=== PATIENT | female | born 1970 | race Caucasian/White ===

== ENCOUNTER 2017-08-29 19:22 | Emergency (ER) | payer OTHER, SELFPAY ==
[2017-08-29 19:24] VITALS: BP 158/98; PULSE 105; RESP 14; TEMP 36.7; O2SAT 97; BMI 31.6
--- NOTE | 2017-08-29 19:36 | XR_ITS ---
XR chest 2V HISTORY: ITS.REASON: cough ORDERING PHYSICIAN: Carmen Langston MD PATIENT AGE: 46 years COMPARISON: None available FINDINGS: The cardiomediastinal silhouette and pulmonary vascularity are within normal limits. The lungs are clear without infiltrates, suspicious nodules, or pleural effusions. No acute bony abnormalities. IMPRESSION: Negative chest, no acute finding
--- NOTE | 2017-08-29 19:40 | HMH.EDURI ---
ED Disposition Condition on Discharge: Good Time of Disposition: 19:59 - Critical Care Critical Care Time: No <LangstonHuyCarmen M - Last Filed: 08/29/17 19:57> <Cooper Sorto - Last Filed: 08/29/17 20:40> Clinical Impression: Upper respiratory infection Qualifiers: URI type: unspecified viral URI Qualified Code(s): J06.9 - Acute upper respiratory infection, unspecified Disposition: Home, Self-Care Attestation: On 08/29/17, the high probability of a clinically significant, sudden or life threatening deterioration of the following system(s) required my full and direct attention, intervention and personal management. The time I documented below is in addition to time spent performing reported procedures but includes the following listed in this critical care notation. Medical Decision Making - Tray Inquiry Pt receiving controlled substance: No <Carmen Langston - Last Filed: 08/29/17 19:57> - Radiology Data #1 Image(s): Chest Image Reviewed: Yes I reviewed the patient's radiology image Preliminary Findings: Normal/NAD <Cooper Sorto - Last Filed: 08/29/17 20:40> Vital Signs: 08/29/17 19:24 Temperature 98.1 F Temperature Source Oral Pulse Rate [Left Radial] 105 H Respiratory Rate 14 Blood Pressure [Right Arm] 158/98 Blood Pressure Mean [Right Arm] 118 Blood Pressure Source [Right Arm] Automatic Cuff Blood Pressure Position [Right Arm] Sitting 02 Sat by Pulse Oximetry 97 Oxygen Delivery Method Room Air - Lab Data Lab Results 08/29/17 19:30: Influenza Type A Ag Negative, Influenza Type B Ag Negative, Group A Strep Rapid Negative Orders (Tests/Meds): ORDERS Category Date Time Status XR chest 2V Stat Exams 08/29/17 19:36 Taken Strep Screen Confirmation Stat Micro 08/29/17 19:30 Received URI/Sore Throat HPI - General Mode of Arrival: Ambulatory Limitations: No Limitations Description of Symptoms (Recalled from ER Triage Doc. by RN): since last tuesday chest congestion, sinus congestion, sore throat, [facility] gave amox and mucinex for since last Tue - History of Present Illness MD Complaint: fever, cough, sore throat, rhinorrhea, nasal congestion Onset (ago): day(s) Duration: constant Severity: mild Relieving factors: nothing Able to tolerate fluids by mouth: Yes Associated symptoms: fever, myalgias, diaphoresis, rhinorrhea, nasal congestion Treatments prior to arrival: none <Carmen Langston - Last Filed: 08/29/17 19:57> <Cooper Sorto - Last Filed: 08/29/17 20:40> - General Chief Complaint: Upper Respiratory Infection Stated Complaint: wheezing, chest congestion - Related Data Allergies Allergy/AdvReac Type Severity Reaction Status Date / Time ADHESIVES Allergy Unknown Uncoded 06/07/17 14:26 [facility] History I have reviewed the patient's past medical history: Yes Medical History: Reports:: Cancer (cervical), Diabetes Mellitus Type 2 Denies:: Diabetes Mellitus Type 1, MRSA Amputation: No Fractures: No - Social History Smoking Status: Former smoker Alcohol Intake: never - Psychiatric History Expresses thoughts of harming self/others: None Suicide Plan Description: No Plan <Carmen Langston - Last Filed: 08/29/17 19:57> ROS Obtained: Yes All systems reviewed & no additional complaints <Carmen Langston - Last Filed: 08/29/17 19:57> Physical Exam - General General appearance: alert, in no apparent distress - Head Head exam: atraumatic, normocephalic, normal inspection - Eye Eye exam: Present: normal appearance, PERRL, EOMI - ENT ENT exam: Present: normal oropharynx, mucous membranes moist, normal external ear exam, other (cloudy TM's B; throat no erythema or exudates; no VU) - Chest Chest inspection: Present: normal inspection, symmetric chest wall rise. Absent: tenderness - Respiratory Respiratory exam: Present: normal lung sounds bilaterally, wheezes, other (occ bronchitic cough; ). Absent: respiratory distress - C
--- NOTE | 2017-08-29 19:46 | ED_ITS ---
ED Disposition Condition on Discharge: Good Time of Disposition: 19:59 - Critical Care Critical Care Time: No <LangstonHuyCarmen M - Last Filed: 08/29/17 19:57> <Cooper Sorto - Last Filed: 08/29/17 20:40> Clinical Impression: Upper respiratory infection Qualifiers: URI type: unspecified viral URI Qualified Code(s): J06.9 - Acute upper respiratory infection, unspecified Disposition: Home, Self-Care Attestation: On 08/29/17, the high probability of a clinically significant, sudden or life threatening deterioration of the following system(s) required my full and direct attention, intervention and personal management. The time I documented below is in addition to time spent performing reported procedures but includes the following listed in this critical care notation. Medical Decision Making - Tray Inquiry Pt receiving controlled substance: No <Carmen Langston - Last Filed: 08/29/17 19:57> - Radiology Data #1 Image(s): Chest Image Reviewed: Yes I reviewed the patient's radiology image Preliminary Findings: Normal/NAD <Cooper Sorto - Last Filed: 08/29/17 20:40> Vital Signs: 08/29/17 19:24 Temperature 98.1 F Temperature Source Oral Pulse Rate [Left Radial] 105 H Respiratory Rate 14 Blood Pressure [Right Arm] 158/98 Blood Pressure Mean [Right Arm] 118 Blood Pressure Source [Right Arm] Automatic Cuff Blood Pressure Position [Right Arm] Sitting 02 Sat by Pulse Oximetry 97 Oxygen Delivery Method Room Air - Lab Data Lab Results 08/29/17 19:30: Influenza Type A Ag Negative, Influenza Type B Ag Negative, Group A Strep Rapid Negative Orders (Tests/Meds): ORDERS Category Date Time Status XR chest 2V Stat Exams 08/29/17 19:36 Taken Strep Screen Confirmation Stat Micro 08/29/17 19:30 Received URI/Sore Throat HPI - General Mode of Arrival: Ambulatory Limitations: No Limitations Description of Symptoms (Recalled from ER Triage Doc. by RN): since last tuesday chest congestion, sinus congestion, sore throat, [facility] gave amox and mucinex for since last Tue - History of Present Illness MD Complaint: fever, cough, sore throat, rhinorrhea, nasal congestion Onset (ago): day(s) Duration: constant Severity: mild Relieving factors: nothing Able to tolerate fluids by mouth: Yes Associated symptoms: fever, myalgias, diaphoresis, rhinorrhea, nasal congestion Treatments prior to arrival: none <Carmen Langston - Last Filed: 08/29/17 19:57> <Cooper Sorto - Last Filed: 08/29/17 20:40> - General Chief Complaint: Upper Respiratory Infection Stated Complaint: wheezing, chest congestion - Related Data Allergies Allergy/AdvReac Type Severity Reaction Status Date / Time ADHESIVES Allergy Unknown Uncoded 06/07/17 14:26 [facility] History I have reviewed the patient's past medical history: Yes Medical History: Reports:: Cancer (cervical), Diabetes Mellitus Type 2 Denies:: Diabetes Mellitus Type 1, MRSA Amputation: No Fractures: No - Social History Smoking Status: Former smoker Alcohol Intake: never - Psychiatric History Expresses thoughts of harming self/others: None Suicide Plan Description: No Plan <Carmen Langston - Last Filed: 08/29/17 19:57> ROS Obtained: Yes All systems reviewed & no additional complaints
[2017-08-29 20:07] LABS: Strep Scrn Group A (Rapid) Negative (Negative)
[2017-08-29 20:46] VITALS: BP 158/98; PULSE 98; RESP 14; TEMP 37; O2SAT 98
== END 2017-08-29 20:48 | disposition home or self-care (01) ==
PROVIDERS: Emergency Provider Emergency Medicine; Family Provider Family Medicine; PCP Family Medicine
DX: J06.9 Acute upper respiratory infection, unspecified (principal)
CPT/HCPCS: 71046; 87275; 87276; 87430; 99283

== ENCOUNTER → 2019-09-10 15:54 | Outpatient (CLI) | payer OTHER, SELFPAY ==
[2019-09-10 17:02] LABS: Blood Urea Nitrogen 9 mg/dl (7-17); Estimated Glomerular Filt Rate 131 ml/min (>60); GFR (African American) 159 ML/MIN (>60)
== END ==
PROVIDERS: PCP Family Medicine; Visit Provider Otolaryngology
DX: D37.030 Neoplasm of uncertain behavior of the parotid salivary glands (principal); R22.0 Localized swelling, mass and lump, head
CPT/HCPCS: 36415; 82565; 84520

== ENCOUNTER → 2019-09-11 10:28 | Outpatient (CLI) | payer OTHER, SELFPAY ==
--- NOTE | 2019-09-11 10:34 | CT_ITS ---
PROCEDURE: CT SOFT TISSUE NECK W CON CLINICAL HISTORY: LT parotid MASS COMPARISON: No exams were available for comparison TECHNIQUE: 75 mL Optiray 350 IV Axial images obtained with sagittal and coronal reformats. All CT scans at the facility use one or more dose reduction, viz: automated exposure control, ma/kV adjustment per patient size (including targeted exams where dose is matched to indication, i.e. head), or iterative reconstruction technique. FINDINGS: A BB is placed in the left posterior facial area in the preauricular region. There is a small lymph node just deep and inferior to this region which could account for the palpable abnormality. This measures approximately 10 mm. No parotid mass is evident. No abnormal fluid collections apparent. There are few scattered small lymph nodes in the neck bilaterally. Small node along superior lateral aspect of the right parotid is present measuring 7 mm with 2 additional nodules in the right periparotid region 1 posteriorly at 7 mm and 1 inferiorly at 11 mm. Scattered small nodes are present on the left as well the largest measuring approximately 2 by 1 cm in the jugular area. Lung apices are clear. There are degenerative changes in the cervical spine. No thyroid mass evident. No obvious parapharyngeal mass. There is moderate mucosal thickening involving the maxillary sinuses on both sides consistent with underlying retention cyst. There has been prior maxillary sinus surgery. TMJs have an unremarkable appearance. IMPRESSION: 1. Mildly prominent cervical lymph nodes. These are nonspecific the largest in the internal jugular region at approximately 2 x 1 cm. A BB is placed in the left facial area. A small lymph node measuring approximately 1 cm present just deep in inferior to this region and may account for the palpable abnormality 2. Maxillary sinus disease Dictated by: Feliz Velasquez MD 09/12/2019 11:40 Electronically signed by Feliz Velasquez MD in [place] 09/12/2019 11:40
== END ==
PROVIDERS: PCP Family Medicine; Visit Provider Otolaryngology
DX: D37.030 Neoplasm of uncertain behavior of the parotid salivary glands (principal); R22.0 Localized swelling, mass and lump, head
CPT/HCPCS: 70491; Q9967

== ENCOUNTER → 2019-09-24 09:12 | Outpatient (CLI) | payer OTHER, SELFPAY ==
--- NOTE | 2019-09-24 09:14 | US_ITS ---
PROCEDURE: US SOFT TISSUE HEAD AND NECK CLINICAL INDICATION: ENLARGED LYMPH NODE, left facial swelling COMPARISON: CT SOFT TISSUE NECK W CON from 09/11/2019 FINDINGS: There are few scattered small nodes in the neck on both sides. The submandibular glands have an unremarkable appearance. No dominant adenopathy is evident. The small node seen on the CT scan at 2 x 1 cm is not readily identified on the ultrasound due to its deep location The left parotid gland is enlarged but no parotid mass is evident. There is a small node along the anterior aspect of the left parotid gland at approximately 1.4 cm by 0.7 cm. The right parotid gland is small measuring 2.4 x 0.9 cm. Whereas, the left parotid gland measures approximately 4 x 1.7 cm. No abnormal fluid collections are evident. IMPRESSION: 1. No dominant adenopathy. The small nodes noted on the CT scan are not good candidates for fine needle aspiration. 2. There is asymmetric enlargement of the left parotid gland. The right parotid gland is atrophic on the CT scan. No parotid mass is evident. 3. Suggest [address] follow-up of the parotids. If the node and question continues to enlarge then biopsy could be reconsidered at that time Dictated by: Feliz Velasquez MD 09/24/2019 10:26 Electronically signed by Feliz Velasquez MD in [place] 09/24/2019 10:26
== END ==
PROVIDERS: PCP Family Medicine; Visit Provider Otolaryngology
DX: R22.0 Localized swelling, mass and lump, head (principal); R59.1 Generalized enlarged lymph nodes
CPT/HCPCS: 76536

== ENCOUNTER 2020-02-06 16:37 | Emergency (ER) | payer OTHER, SELFPAY ==
[2020-02-06 17:25] VITALS: BP 134/81; PULSE 93; RESP 20; TEMP 36.8; O2SAT 97; BMI 29.7
--- NOTE | 2020-02-06 17:27 | XR_ITS ---
PROCEDURE: XR FOOT LT MIN 3V CLINICAL INDICATION: stepped on something Possible foreign body COMPARISON: No exams were available for comparison FINDINGS: No fracture or dislocation. No lytic or blastic change. There is normal mineralization. The joint spaces are well-preserved. No significant degenerative/arthritic changes. No erosive changes evident. Other findings:There is a small metallic linear foreign body along the plantar surface of the foot lateral to the cuboid. This measures approximately 4 mm in length IMPRESSION: Positive for foreign body Dictated by: Feliz Velasquez MD 02/06/2020 21:52 Feliz Velasquez MD in [place] 02/06/2020 21:52
--- NOTE | 2020-02-06 18:53 | XR_ITS ---
PROCEDURE: XR FOOT LT MIN 3V CLINICAL INDICATION: injury Foreign body removal evaluation COMPARISON: CR XR FOOT LT MIN 3V from 02/06/2020 FINDINGS: No fracture or dislocation. No lytic or blastic change. There is normal mineralization. The joint spaces are well-preserved. No significant degenerative/arthritic changes. No erosive changes evident. Other findings:The previously noted metallic foreign body along the plantar surface of the foot is no longer apparent. IMPRESSION: Status post foreign body removal Dictated by: Feliz Velasquez MD 02/06/2020 21:51 Feliz Velasquez MD in [place] 02/06/2020 21:51
--- NOTE | 2020-02-06 19:21 | HMH.EDUTC ---
[facility] [place] [facility] [place] Clinical Impression: Foreign body in right foot Qualifiers: Encounter type: initial encounter Qualified Code(s): S90.851A - Superficial foreign body, right foot, initial encounter Puncture wound of right foot Qualifiers: Encounter type: initial encounter Qualified Code(s): S91.331A - Puncture wound without foreign body, right foot, initial encounter Diabetes Qualifiers: Diabetes mellitus type: type 2 Diabetes mellitus shelter insulin use: unspecified shelter insulin use status Diabetes mellitus complication status: with other specified complication Qualified Code(s): E11.69 - Type 2 diabetes mellitus with other specified complication Disposition: Home, Self-Care Condition on Discharge: Good Instructions: DI for Removal of Foreign Body From Skin, DI for Puncture Wound Additional Instructions: Take the antibiotics as directed. Follow up with your regular doctor for a recheck of the wound in 24 to 48 hours. Follow up with podiatry (Dr. Lira). I put in a referral, but you'll need to call her office in the morning and schedule an appointment with her. Since you are diabetic, it is very important to follow up appropriately when you've had any injury to your feet, much less a puncture wound with a foreign body. Rest and keep the foot elevated as much time as possible for the next few days. Watch the site for any signs of worsening infection, such as worsening redness, swelling, drainage, etc. GO TO THE ER FOR ANY WORSENING SYMPTOMS OR CONCERNS Prescriptions: Ciprofloxacin HCl [Cipro 500mg Tab] 500 mg PO BID 10 Days #20 tab Transmission Status: Received by [id number] clindamycin HCL [Clindamycin HCl 300mg Cap] 300 mg PO Q8 10 Days #30 cap Transmission Status: Received by [id number] Referrals: Vickie Angulo [Primary Care Provider] - Keesha Lira DPM [Staff Physician] - Forms: Work/School Release Time of Disposition: 19:30 Medical Decision Making - Medical Records Medical records reviewed: No: I reviewed the patient's medical records. - Tray Inquiry Pt receiving controlled substance: No Vital Signs: 02/06/20 17:25 02/06/20 19:41 Temperature 98.3 F 98.3 F Temperature Source Oral Pulse Rate 93 H Pulse Rate [Left Brachial] 93 H Respiratory Rate 20 20 Blood Pressure 134/81 Blood Pressure [Left Arm] 134/81 Blood Pressure Mean [Left Arm] 98 Blood Pressure Source [Left Arm] Automatic Cuff Blood Pressure Position [Left Arm] Sitting 02 Sat by Pulse Oximetry 97 Oxygen Delivery Method Room Air Orders (Tests/Meds): ED MEDICATIONS Discontinued Medications Generic Name Dose Route Start Last Admin Trade Name [place] PRN Reason Stop Dose Admin Ceftriaxone Sodium 1 gm 02/06/20 19:20 02/06/20 19:33 Rocephin 1gm Vial IM 02/06/20 19:21 1 gm ONCE ONE Administration Protocol Lidocaine HCl 0 ml 02/06/20 19:20 02/06/20 19:33 Lidocaine 1% 10ml Mdv IM 02/06/20 19:21 2.1 ml ONCE ONE Administration - Radiology Data #1 Image(s): Foot/Toes Image Reviewed: Yes I reviewed the patient's radiology image, Yes I have reviewed radiologist's interpretation Preliminary Findings: Abnormal PROCEDURE: XR FOOT LT MIN 3V CLINICAL INDICATION: stepped on something Possible foreign body COMPARISON: No exams were available for comparison FINDINGS: No fracture or dislocation. No lytic or blastic change. There is normal mineralization. The joint spaces are well-preserved. No significant degenerative/arthritic changes. No erosive changes evident. Other findings:There is a small metallic linear foreign body along the plantar surface of the foot lateral to the cuboid. This measures approximately 4 mm in length IMPRESSION: Positive for foreign body Dictated by: Feliz Velasquez MD 02/06/2020 21:52 Feliz Velasquez MD in [place] 02/06/2020 21:52 #2 Image Reviewed: Yes I reviewed the patient's radiology image, Yes
[2020-02-06 19:41] VITALS: BP 134/81; PULSE 93; RESP 20; TEMP 36.8; O2SAT 97
== END 2020-02-06 19:42 | disposition home or self-care (01) ==
PROVIDERS: Emergency Provider Nurse Practitioner Family; PCP Family Medicine
DX: S90.851A Superficial foreign body, right foot, initial encounter (principal); S91.331A Puncture wound without foreign body, right foot, initial encounter; E11.69 Type 2 diabetes mellitus with other specified complication; W22.8XXA Striking against or struck by other objects, initial encounter; Y92.69 Other specified industrial and construction area as the place of occurrence of the external cause; Y99.0 Civilian activity done for income or pay; Z79.84 Long term (current) use of oral hypoglycemic drugs; Z87.891 Personal history of nicotine dependence; Z91.048 Other nonmedicinal substance allergy status
CPT/HCPCS: 73630; 96372; 99202

== ENCOUNTER 2020-06-02 12:34 | Emergency (ER) | payer OTHER, SELFPAY ==
[2020-06-02 12:40] VITALS: BP 144/82; PULSE 96; RESP 14; TEMP 36.8; O2SAT 96; BMI 30.4
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
[2020-06-02 13:56] VITALS: BP 144/82; PULSE 96; RESP 14; TEMP 36.8; O2SAT 96
== END 2020-06-02 14:00 | disposition home or self-care (01) ==
PROVIDERS: Emergency Provider Nurse Practitioner Family; PCP Family Medicine
DX: S97.81XA Crushing injury of right foot, initial encounter (principal); W22.8XXA Striking against or struck by other objects, initial encounter; Y92.019 Unspecified place in single-family (private) house as the place of occurrence of the external cause; I10 Essential (primary) hypertension; E11.9 Type 2 diabetes mellitus without complications; Z91.048 Other nonmedicinal substance allergy status; Z87.891 Personal history of nicotine dependence
CPT/HCPCS: 73630; 99201

== ENCOUNTER → 2020-07-14 13:20 | Outpatient (CLI) | payer OTHER, SELFPAY ==
[2020-07-14 15:06] LABS: Chloride 104 mmol/L (98-107); Potassium 4.5 mmoL/L (3.5-5.1); Sodium 139 mmol/L (136-145)
[2020-07-14 15:09] LABS: Alanine Aminotransferase 59 U/L (12-78); Albumin Level 4.4 g/dl (3.5-5.0); Albumin/Globulin Ratio 1.2 (1.1-1.8); Alkaline Phosphatase 87 U/L (38-126); Anion Gap 14.5 mEq/L (5-15); Aspartate Amino Transferase 49 U/L (14-36); Bilirubin,Total 0.4 mg/dl (0.2-1.3); Blood Urea Nitrogen 11 mg/dl (7-17); Carbon Dioxide 25 mmol/L (22.0-30.0); Estimated Glomerular Filt Rate 131 ml/min (>60); GFR (African American) 158 ML/MIN (>60); Globulin 3.6 g/dL (1.3-3.2)
[2020-07-14 15:10] LABS: Calcium 9.8 mg/dl (8.4-10.2); Glucose 150 mg/dl (74-100)
[2020-07-16 12:11] LABS: Immunoglobulin A, Qn 274 mg/dL (87-352); Immunoglobulin G, Qn 1342 mg/dL (586-1602)
[2020-07-16 15:42] LABS: Cytomegalovirus (CMV) Ab, IgM <30.0 AU/mL (0.0-29.9); Hep A Ab, Total Positive (Negative); Immunoglobulin M, Qn 174 mg/dL (26-217)
[2020-07-16 23:05] LABS: EBV Ab VCA, IgG 98.2 U/mL (0.0-17.9)
[2020-07-17 18:49] LABS: Antinuclear Antibodies, IFA Positive (.)
[2020-07-19 12:19] LABS: CMV Quant DNA PCR (Plasma) Negative (Negative)
== END ==
PROVIDERS: Visit Provider Nurse Practitioner Acute Care
DX: Z00.00 Encounter for general adult medical examination without abnormal findings (principal); R74.8 Abnormal levels of other serum enzymes; R76.8 Other specified abnormal immunological findings in serum
CPT/HCPCS: 36415; 80053; 82784; 86038; 86645; 86665; 86708; 87497

== ENCOUNTER → 2021-02-11 12:49 | Outpatient (CLI) | payer OTHER, SELFPAY ==
[2021-02-11 15:31] LABS: Influenza A, PCR Not Detected (NotDetected); Influenza B, PCR Not Detected (NotDetected)
[2021-02-11 16:05] LABS: Coronavirus 19, PCR Detected (NotDetected)
--- NOTE | 2021-02-11 17:11 | PC.NURSE ---
PT NOTIFIED OF POSITIVE COVID TEST RESULTS
== END ==
PROVIDERS: PCP Family Medicine; Visit Provider Nurse Practitioner
DX: Z20.822 Contact with and (suspected) exposure to COVID-19 (principal)
CPT/HCPCS: U0003

== ENCOUNTER → 2021-05-11 09:44 | Outpatient (CLI) | payer OTHER, SELFPAY ==
[2021-05-11 09:56] LABS: Coronavirus 19, PCR Not Detected (NotDetected); Influenza A, PCR Not Detected (NotDetected); Influenza B, PCR Not Detected (NotDetected)
== END ==
PROVIDERS: PCP Family Medicine; Visit Provider Nurse Practitioner
DX: Z20.822 Contact with and (suspected) exposure to COVID-19 (principal)
CPT/HCPCS: C9803; U0003; U0005

== ENCOUNTER → 2021-07-13 16:31 | Outpatient (CLI) | payer OTHER, SELFPAY ==
--- NOTE | 2021-07-13 16:35 | XR_ITS ---
PROCEDURE INFORMATION: Exam: XR Left Foot Complete; Alignment Exam date and time: 07/13/2021 4:35 PM Age: 50 years old Clinical indication: Pain; Foot; Left; Additional info: Comparison TECHNIQUE: Imaging protocol: XR Left foot. Views: 3 or more views. COMPARISON: CR XR FOOT LT MIN 3V 02/06/2020 7:02 PM FINDINGS: Bones/joints: Small enthesophyte of the calcaneus at the plantar fashion insertion. Soft tissues: Normal. IMPRESSION: Mild enthesopathy of the calcaneus as described above.
--- NOTE | 2021-07-13 16:35 | XR_ITS ---
PROCEDURE INFORMATION: Exam: XR Right Foot Complete; Alignment Exam date and time: 07/13/2021 4:35 PM Age: 50 years old Clinical indication: Pain; Foot; Right; Additional info: Pain in top of right foot. Wt bearing views TECHNIQUE: Imaging protocol: XR Right foot. Views: 3 or more views. COMPARISON: CR XR FOOT RT MIN 3V 06/02/2020 1:10 PM FINDINGS: Bones/joints: Small enthesophyte of the calcaneus at the plantar fascia insertion. Soft tissues: Normal. IMPRESSION: Mild enthesopathy of the calcaneus as described above.
== END ==
PROVIDERS: PCP Family Medicine; Visit Provider Podiatrist
DX: M79.671 Pain in right foot (principal); M79.672 Pain in left foot
CPT/HCPCS: 73630

== ENCOUNTER 2022-08-10 15:22 | Emergency (ER) | payer OTHER, SELFPAY ==
[2022-08-10 15:40] VITALS: BP 154/95; PULSE 102; RESP 20; TEMP 36.7; O2SAT 95; BMI 29.8
--- NOTE | 2022-08-10 15:44 | EXP.UTC ---
Discharge Plan Disposition Patient Disposition: Home, Self-Care Condition: Good Prescriptions Prescriptions: New ondansetron 4 mg Tablet,Disintegrating 4 mg PO Q8H PRN (Reason: Nausea) Qty: 20 0RF No Action diclofenac sodium 1 % gel 4 g TOPICAL QID PRN (Reason: pain ) Qty: 100 2RF Rx Instructions: apply to single, ankle, foot; for foot includes sole/toes/top of foot pioglitazone 30 mg tablet 30 mg PO omeprazole 20 mg capsule,delayed release(DR/EC) 20 mg PO PRN buspirone 15 mg tablet 15 mg PO BID diltiazem HCl 30 mg tablet 30 mg PO BID metformin 500 mg tablet extended release 24 hr 500 mg PO DAILY Label Comments: 500mg AM 1,OOOmg PM gabapentin 100 mg capsule 200 mg PO glimepiride 1 mg tablet 1 mg PO methylprednisolone 4 mg tablets,dose pack 4 mg PO PER PKG DIR Qty: 21 0RF pravastatin 40 MG tablet 40 mg PO HS lisinopril 10 MG tablet 10 mg PO DAILY polyethylene glycol 3350 17 GM powder in packet 17 gm PO DAILY cetirizine 10 MG tablet 10 mg PO DAILY cholecalciferol (vitamin D3) 1,000 UNIT capsule 1,000 unit PO DAILY Lactobacillus acidophilus 1 EACH capsule 1 each PO DAILY psyllium husk 660 GM powder 660 gm PO DAILY Referrals Follow up/Referrals: Vickie Angulo [Primary Care Provider] - See instructions Activity Restrictions/Add. Instructions Additional Instructions/Restrictions: Drink plenty of fluids. Take tylenol or ibuprofen for pain or fever. Take the medications as directed. Follow up with your regular doctor. GO TO THE ER FOR ANY WORSENING SYMPTOMS Take the zofran for nausea if you continue to have that. Clinical Impressions Clinical Impression: Gastroenteritis Stand Alone Forms Stand Alone Forms: Work/School Release Instructions Patient Instructions: DI for Viral Gastroenteritis -- Adult, Ondansetron Discharge ED Provider: Tommy Luna [facility] General Stated complaint: Abdominal Pain Time Seen by Provider: 08/10/22 15:44 History of Present Illness Provider Complaint: She states that for the past 1 day she has had nausea/vomiting and intermittent epigastric cramping and pain. Related Data Home Medications Medication Instructions Recorded Confirmed lisinopril 10 mg tablet 10 mg PO DAILY Hypertension 08/29/17 07/13/21 pravastatin 40 mg tablet 40 mg PO HS highcholesterol 08/29/17 07/13/21 Lactobacillus acidophilus 100 1 each PO DAILY colon health 06/17/18 07/13/21 million cell capsule cetirizine 10 mg tablet 10 mg PO DAILY allergies 06/17/18 07/13/21 cholecalciferol (vitamin D3) 25 1,000 unit PO DAILY Supplement 06/17/18 07/13/21 mcg (1,000 unit) capsule polyethylene glycol 3350 17 gram 17 gm PO DAILY constipation 06/17/18 07/13/21 oral powder packet psyllium husk 3.4 gram/5.4 gram 660 gm PO DAILY constipation 06/17/18 07/13/21 oral powder omeprazole 20 mg capsule,delayed 20 mg PO PRN 07/16/20 07/13/21 release pioglitazone 30 mg tablet 30 mg PO 07/16/20 07/13/21 buspirone 15 mg tablet 15 mg PO BID 07/13/21 07/13/21 diltiazem HCl 30 mg tablet 30 mg PO BID 07/13/21 07/13/21 gabapentin 100 mg capsule 200 mg PO 07/13/21 07/13/21 glimepiride 1 mg tablet 1 mg PO 07/13/21 07/13/21 metformin 500 mg tablet,extended 500 mg PO DAILY 07/13/21 07/13/21 release 24 hr Previous Rx's Medication Instructions Recorded diclofenac sodium 1 % topical gel 4 g topical QID PRN pain #100 06/03/ grams methylprednisolone 4 mg tablets in 4 mg PO PER PKG DIR Pain, swelling 07/13/21 a dose pack #21 tabs ondansetron 4 mg disintegrating 4 mg PO Q8H PRN Nausea #20 tabs 08/10/22 tablet Allergies Allergy/AdvReac Type Severity Reaction Status Date / Time adhesive Allergy Verified 08/10/22 15:59 PFSH PFS Disclaimer: The information contained in this section may have been updated after the patient was seen, as this informat
[2022-08-10 16:00] LABS: Apearance,Urine Clear (Clear); Color,Urine Yellow (Yellow); PH,Urine 5.5 (5.0-8.5)
[2022-08-10 16:01] LABS: Bilirubin,Urine Negative (Negative); Blood, Urine Negative (Negative); Glucose,Urine (UA) Negative (Negative); Ketones,Urine TRACE (Negative); Protein,Urine Trace (Negative); UTC Leukocyte Esterase,Urine Trace (Negative); UTC Nitrate,Urine Negative (Negative); Urobilinogen,Urine 0.2 EU/dl (0.2)
[2022-08-10 16:54] VITALS: BP 154/95; PULSE 102; RESP 20; TEMP 36.7; O2SAT 95
== END 2022-08-10 16:54 | disposition home or self-care (01) ==
PROVIDERS: Emergency Provider Nurse Practitioner Family; PCP Family Medicine
DX: K52.9 Noninfective gastroenteritis and colitis, unspecified (principal)
CPT/HCPCS: 81003; 99212; 99213; G0463

== ENCOUNTER 2023-05-31 19:04 | Emergency (ER) | payer OTHER, SELFPAY ==
[2023-05-31 19:15] VITALS: BP 148/95; PULSE 104; RESP 18; TEMP 37.8; O2SAT 97; BMI 30.7
--- NOTE | 2023-05-31 19:17 | EXP.UTC ---
Discharge Plan Disposition Patient Disposition: Home, Self-Care Condition: Good Prescriptions Prescriptions: New ondansetron 4 mg Tablet,Disintegrating 4 mg PO Q8H PRN (Reason: Nausea) Qty: 12 0RF No Action diclofenac sodium 1 % gel 4 g TOPICAL QID PRN (Reason: pain ) Qty: 100 2RF Rx Instructions: apply to single, ankle, foot; for foot includes sole/toes/top of foot pioglitazone 30 mg tablet 30 mg PO omeprazole 20 mg capsule,delayed release(DR/EC) 20 mg PO PRN buspirone 15 mg tablet 15 mg PO BID diltiazem HCl 30 mg tablet 30 mg PO BID metformin 500 mg tablet extended release 24 hr 500 mg PO DAILY Patient Comments: 500mg AM 1,OOOmg PM gabapentin 100 mg capsule 200 mg PO glimepiride 1 mg tablet 1 mg PO pravastatin 40 MG tablet 40 mg PO HS lisinopril 10 MG tablet 10 mg PO DAILY ondansetron 4 mg Tablet,Disintegrating 4 mg PO Q8H PRN (Reason: Nausea) Qty: 20 0RF polyethylene glycol 3350 17 GM powder in packet 17 g PO DAILY cetirizine 10 MG tablet 10 mg PO DAILY cholecalciferol (vitamin D3) 1,000 UNIT capsule 1,000 unit PO DAILY Lactobacillus acidophilus 1 EACH capsule 1 each PO DAILY psyllium husk 660 GM powder 660 g PO DAILY Referrals Follow up/Referrals: Vickie Angulo [Primary Care Provider] - See instructions Activity Restrictions/Add. Instructions Additional Instructions/Restrictions: Drink plenty of fluids. Take tylenol or ibuprofen for pain or fever. Follow up with your regular doctor. GO TO THE ER FOR ANY WORSENING SYMPTOMS Clinical Impressions Clinical Impression: Acute viral syndrome Instructions Patient Instructions: DI for Viral Syndrome Discharge ED Provider: Tommy Luna [facility] [place] HPI General Stated complaint: sore throat, fever, cough, weakness Time Seen by Provider: 05/31/23 19:17 History of Present Illness Provider Complaint: She states that for the past 2 days she has had chills, body aches, fatigue and weakness. She denies that she has had cough or shortness of breath. Related Data Home Medications Medication Instructions Recorded Confirmed lisinopril 10 mg tablet 10 mg PO DAILY Hypertension 08/29/17 08/30/22 pravastatin 40 mg tablet 40 mg PO HS highcholesterol 08/29/17 08/30/22 Lactobacillus acidophilus 100 1 each PO DAILY colon health 06/17/18 08/30/22 million cell capsule cetirizine 10 mg tablet 10 mg PO DAILY allergies 06/17/18 08/30/22 cholecalciferol (vitamin D3) 25 1,000 unit PO DAILY Supplement 06/17/18 08/30/22 mcg (1,000 unit) capsule polyethylene glycol 3350 17 gram 17 g PO DAILY constipation 06/17/18 08/30/22 oral powder packet psyllium husk 3.4 gram/5.4 gram 660 g PO DAILY constipation 06/17/18 08/30/22 oral powder omeprazole 20 mg capsule,delayed 20 mg PO PRN 07/16/20 08/30/22 release pioglitazone 30 mg tablet 30 mg PO 07/16/20 08/30/22 buspirone 15 mg tablet 15 mg PO BID 07/13/21 08/30/22 diltiazem HCl 30 mg tablet 30 mg PO BID 07/13/21 08/30/22 gabapentin 100 mg capsule 200 mg PO 07/13/21 08/30/22 glimepiride 1 mg tablet 1 mg PO 07/13/21 08/30/22 metformin 500 mg tablet,extended 500 mg PO DAILY 07/13/21 08/30/22 release 24 hr Previous Rx's Medication Instructions Recorded diclofenac sodium 1 % topical gel 4 g topical QID PRN pain #100 06/03/ grams ondansetron 4 mg disintegrating 4 mg PO Q8H PRN Nausea #20 tabs 08/10/22 tablet ondansetron 4 mg disintegrating 4 mg PO Q8H PRN Nausea #12 tabs 05/31/23 tablet Allergies Allergy/AdvReac Type Severity Reaction Status Date / Time adhesive Allergy Verified 05/31/23 19:46 [facility] Disclaimer: The information contained in this section may have been updated after the patient was seen, as this information can be updated by other users. Medical History (Updated 05/31/23 @ 19:54 by Tommy Luna APRN) Crush injury of right foot Foot p
[2023-05-31 19:34] LABS: UTC Strep Screen (Rapid) Negative (Negative)
[2023-05-31 19:35] LABS: UTC Influenza A Antigen Negative (Negative); UTC Influenza B Antigen Negative (Negative)
[2023-05-31 20:07] VITALS: BP 148/95; PULSE 104; RESP 18; TEMP 37.3; O2SAT 97
== END 2023-05-31 20:07 | disposition home or self-care (01) ==
PROVIDERS: Emergency Provider Nurse Practitioner Family; PCP Family Medicine
DX: R07.0 Pain in throat (principal); R50.9 Fever, unspecified; R53.1 Weakness; M79.18 Myalgia, other site; R53.83 Other fatigue; R05.9 Cough, unspecified; B34.9 Viral infection, unspecified; Z87.891 Personal history of nicotine dependence
CPT/HCPCS: 87635; 87804; 87880; 99212; 99214; G0463

== ENCOUNTER 2023-06-30 11:24 | Emergency (ER) | payer OTHER, SELFPAY ==
[2023-06-30 12:00] VITALS: BP 127/81; PULSE 99; RESP 20; TEMP 37.4; O2SAT 96; BMI 30.7
--- NOTE | 2023-06-30 12:18 | EXP.UTC ---
Discharge Plan Disposition Patient Disposition: Home, Self-Care Condition: Good Prescriptions Prescriptions: No Action diclofenac sodium 1 % gel 4 g TOPICAL QID PRN (Reason: pain ) Qty: 100 2RF Rx Instructions: apply to single, ankle, foot; for foot includes sole/toes/top of foot pioglitazone 30 mg tablet 30 mg PO omeprazole 20 mg capsule,delayed release(DR/EC) 20 mg PO PRN buspirone 15 mg tablet 15 mg PO BID diltiazem HCl 30 mg tablet 30 mg PO BID metformin 500 mg tablet extended release 24 hr 500 mg PO DAILY Patient Comments: 500mg AM 1,OOOmg PM gabapentin 100 mg capsule 200 mg PO glimepiride 1 mg tablet 1 mg PO pravastatin 40 MG tablet 40 mg PO HS lisinopril 10 MG tablet 10 mg PO DAILY ondansetron 4 mg Tablet,Disintegrating 4 mg PO Q8H PRN (Reason: Nausea) Qty: 20 0RF ondansetron 4 mg Tablet,Disintegrating 4 mg PO Q8H PRN (Reason: Nausea) Qty: 12 0RF polyethylene glycol 3350 17 GM powder in packet 17 g PO DAILY cetirizine 10 MG tablet 10 mg PO DAILY cholecalciferol (vitamin D3) 1,000 UNIT capsule 1,000 unit PO DAILY Lactobacillus acidophilus 1 EACH capsule 1 each PO DAILY psyllium husk 660 GM powder 660 g PO DAILY Referrals Follow up/Referrals: Vickie Angulo [Primary Care Provider] - See instructions Activity Restrictions/Add. Instructions Additional Instructions/Restrictions: Lots of rest Increase Fluids water, Gatorade, powerade, pedialyte,if infant/toddler/child Alternate Tylenol and / or ibuprofen as discussed for fever, aches, chills Follow up IMMEDIATELY with your family doctor for new or worsening Symptoms OR no noticeable improvement over the next 48-72 hours, 911 for difficulty or breathing You or your child area contagious until no fever, aches, chills for 24 hours with medication for symptoms Help Prevent the spread of influenza: ?Wash your hands often. Use soap and water. Wash your hands after you use the bathroom, change a child's diapers, or sneeze. Wash your hands before you prepare or eat food. Use gel hand cleanser that has 60% alcohol, when soap and water are not available. Do not touch your eyes, nose, or mouth unless you have washed your hands first. Cover your mouth when you sneeze or cough. Cough into a tissue or the bend of your arm. If you use a tissue, throw it away immediately and wash your hands. Clean shared items with a germ-killing cleaner touch up worker. Clean table surfaces, doorknobs, and light switches. Do not share towels, silverware, and dishes with people who are sick. Wash bed sheets, towels, silverware, and dishes with soap and water. Wear a mask over your mouth and nose if you are sick. The face mask may help protect others from becoming infected with the flu. Wear the mask when in common areas of your home or if you seek care with a healthcare provider. Stay away from others if you are sick. Stay at home until 24 hours after your fever and symptoms are gone. Clinical Impressions Clinical Impression: Exposure to influenza Instructions Patient Instructions: DI for Viral Syndrome Discharge ED Provider: Ladonna White [facility] [place] HPI General Stated complaint: wants flu test, cough Mode of Arrival: Ambulatory Source of Information: Patient Limitations: No Limitations Time Seen by Provider: 06/30/23 12:18 Description of Symptoms (Recalled from Triage Doc. by RN): PATIENT C/O BODY ACHES, COUGH, WEAKNESS, AND FEELING TIRED HEENT Symptoms (Recalled from RN notes): No Resp Symptoms (Recalled from RN notes): Yes Skin Symptoms (Recalled from RN notes): No MS Symptoms (Recalled from RN notes): No Functional Status (Recalled from RN notes): WNL History of Present Illness Provider Complaint: Patient states that she has been taking care of her grandchildren that has the flu States that she woke up this morning feeling achy, tired, slight cough and fatigue States that she wanted to get tested for the flu worried that she may have it now Related Data Home Medications Medication Instructions Recorded Confirmed lisinopril 10 mg tablet 10 mg PO DAILY Hypertension 08/29/17 08/30/22 pravastatin 40 mg tablet 40 mg PO HS highcholesterol 08/29/17 08/30/22 Lactobacillus acidophilus 100 1 each PO DAILY colon health 06/17/18 08/30/22 million cell capsule cetirizine 10 mg tablet 10 mg PO DAILY allergies 06/17/18 08/30/22 cholecalciferol (vitamin D3) 25 1,000 unit PO DAILY Supplement 06/17/18 08/30/22 mcg (1,000 unit) capsule polyethylene glycol 3350 17 gram 17 g PO DAILY constipation 06/17/18 08/30/22 oral powder packet psyllium husk 3.4 gram/5.4 gram 660 g PO DAILY constipation 06/17/18 08/30/22 oral powder omeprazole 20 mg capsule,delayed 20 mg PO PRN 07/16/20 08/30/22 release pioglitazone 30 mg tablet 30 mg PO 07/16/20 08/30/22 buspirone 15 mg tablet 15 mg PO BID 07/13/21 08/30/22 diltiazem HCl 30 mg tablet 30 mg PO BID 07/13/21 08/30/22 gabapentin 100 mg capsule 200 mg PO 07/13/21 08/30/22 glimepiride 1 mg tablet 1 mg PO 07/13/21 08/30/22 metformin 500 mg tablet,extended 500 mg PO DAILY 07/13/21 08/30/22 release 24 hr Previous Rx's Medication Instructions Recorded diclofenac sodium 1 % topical gel 4 g topical QID PRN pain #100 06/03/ grams ondansetron 4 mg disintegrating 4 mg PO Q8H PRN Nausea #20 tabs 08/10/22 tablet ondansetron 4 mg disintegrating 4 mg PO Q8H PRN Nausea #12 tabs 05/31/23 tablet Allergies Allergy/AdvReac Type Severity Reaction Status Date / Time adhesive Allergy Verified 05/31/23 19:46 Worker's Comp Is this a Worker's Comp case?: No [facility] Disclaimer: The information contained in this section may have been updated after the patient was seen, as this information can be updated by other users. Medical History (Updated 06/30/23 @ 12:23 by Ladonna White APRN) Crush injury of right foot Foot pain Foreign body in right foot Lumbar strain Pedal edema Puncture wound of right foot Sinusitis Upper respiratory infection Social History Smoking Status: Former smoker alcohol intake: never current occupational status: other Travel in the last 8 weeks: None ROS Obtained: Yes All systems reviewed & no additional complaints except as documented and Yes Systems reviewed as appropriate & no additional complaints except as documented Constitutional Constitutional: Reports system reviewed and no additional complaints, except as documented, Reports as per HPI, Reports body ache, Reports chills and Reports fatigue ENT Ears, Nose, Mouth, and Throat: Reports system reviewed and no additional complaints, except as documented and Reports as per HPI Cardiovascular Cardiovascular: Reports system reviewed and no additional complaints, except as documented and Reports as per HPI Respiratory Respiratory: Reports system reviewed and no additional complaints, except as documented and Reports as per HPI Gastrointestinal Gastrointestingal: Reports system reviewed and no additional complaints, except as documented and as per HPI Endocrine Endocrine: Reports fatigue Physical Exam General General appearance: alert and in no apparent distress ENT ENT exam: Present mucous membranes moist Respiratory Respiratory exam: Present normal lung sounds bilaterally; Absent respiratory distress or wheezes Cardiovascular Cardiovascular exam: Present regular rate, normal rhythm and normal heart sounds Abdominal Exam Abdominal exam: Present soft and normal bowel sounds; Absent distention or tenderness Neurological Exam Neurological exam: Present alert, oriented X3 and normal gait Medical Decision Making Tray Inquiry Pt receiving controlled substance: No Tray was queried for this patient: No Vital Signs: 06/30/23 12:00 Temperature 99.4 F Temperature Source Oral Pulse Rate [Right Brachial] 99 H Respiratory Rate 20 Blood Pressure [Right Arm] 127/81 Blood Pressure Mean [Right Arm] 96 Blood Pressure Source [Right Arm] Automatic Cuff Blood Pressure Position [Right Arm] Sitting 02 Sat by Pulse Oximetry 96 Oxygen Delivery Method Room Air Lab Data Lab results reviewed: Yes I reviewed the patient's lab results.
[2023-06-30 12:30] VITALS: BP 127/81; PULSE 99; RESP 20; TEMP 37.4; O2SAT 96
== END 2023-06-30 12:32 | disposition home or self-care (01) ==
PROVIDERS: Emergency Provider Nurse Practitioner; PCP Family Medicine
DX: R05.9 Cough, unspecified (principal); R53.1 Weakness; R53.83 Other fatigue; Z87.891 Personal history of nicotine dependence
CPT/HCPCS: 99212; 99213; G0463

== ENCOUNTER 2024-01-29 19:46 | Observation (INO) | payer OTHER, SELFPAY ==
[2024-01-29 19:48] VITALS: BP 135/87; PULSE 98; RESP 20; TEMP 36.8; O2SAT 95; BMI 29.7
[2024-01-29 19:53] VITALS: BP 135/87; PULSE 100; O2SAT 95
--- NOTE | 2024-01-29 19:54 | HMH.EDGENADL ---
Discharge Plan Disposition Patient Disposition: Admitted Condition: Good Clinical Impressions Clinical Impression: Purple toe syndrome of left foot Discharge ED Provider: Bob Barrett General Adult HPI <CHAMP Enciso - Last Filed: 01/29/24 21:39> General Chief complaint: Extremity Injury, Lower Stated complaint: toe turning black, LT foot Time Seen by Provider: 01/29/24 19:52 History of Present Illness HPI narrative: Patient presents for evaluation of a left toe problem. Patient states that she noticed that her left fourth toe was turning black without any known trauma. She noticed that it might have been slightly sore at some point today and happened to look down and noticed that her toe was dark in color. She does not recall any trauma initially. Patient did state later though that a grandchild walked over her bare toe with a croc but she thought nothing of it. She denies any fever chills hemoptysis hematochezia melena hematemesis hematuria chest pain or shortness of breath. She is a type II diabetic on oral regimen only. She is also currently on a statin. Related Data Home Medications ?Medication ?Instructions ?Recorded ?Confirmed lisinopril 10 mg tablet 10 mg PO DAILY Hypertension 08/29/17 08/30/22 pravastatin 40 mg tablet 40 mg PO HS highcholesterol 08/29/17 08/30/22 Lactobacillus acidophilus 100 1 each PO DAILY colon health 06/17/18 08/30/22 million cell capsule cetirizine 10 mg tablet 10 mg PO DAILY allergies 06/17/18 08/30/22 cholecalciferol (vitamin D3) 25 1,000 unit PO DAILY Supplement 06/17/18 08/30/22 mcg (1,000 unit) capsule polyethylene glycol 3350 17 gram 17 g PO DAILY constipation 06/17/18 08/30/22 oral powder packet psyllium husk 3.4 gram/5.4 gram 660 g PO DAILY constipation 06/17/18 08/30/22 oral powder omeprazole 20 mg capsule,delayed 20 mg PO PRN 07/16/20 08/30/22 release pioglitazone 30 mg tablet 30 mg PO 07/16/20 08/30/22 buspirone 15 mg tablet 15 mg PO BID 07/13/21 08/30/22 diltiazem HCl 30 mg tablet 30 mg PO BID 07/13/21 08/30/22 gabapentin 100 mg capsule 200 mg PO 07/13/21 08/30/22 glimepiride 1 mg tablet 1 mg PO 07/13/21 08/30/22 metformin 500 mg tablet,extended 500 mg PO DAILY 07/13/21 08/30/22 release 24 hr Previous Rx's ?Medication ?Instructions ?Recorded diclofenac sodium 1 % topical gel 4 g topical QID PRN pain #100 06/03/ grams ondansetron 4 mg disintegrating 4 mg PO Q8H PRN Nausea #20 tabs 08/10/22 tablet ondansetron 4 mg disintegrating 4 mg PO Q8H PRN Nausea #12 tabs 05/31/23 tablet Allergies Allergy/AdvReac Type Severity Reaction Status Date / Time adhesive Allergy Verified 05/31/23 19:46 PFSH <CHAMP Enciso - Last Filed: 01/29/24 21:39> [facility] Disclaimer: The information contained in this section may have been updated after the patient was seen, as this information can be updated by other users. Medical History (Updated 01/29/24 @ 21:39 by CHAMP Enciso) Pedal edema Foot pain Crush injury of right foot Puncture wound of right foot Foreign body in right foot Lumbar strain Sinusitis Upper respiratory infection Social History Smoking Status: Never smoker alcohol intake: never current occupational status: other Travel in the last 8 weeks: None <CHAMP Enciso - Last Filed: 01/29/24 21:39> ROS Obtained: Yes Systems reviewed as appropriate & no additional complaints except as documented Physical Exam <CHAMP Enciso - Last Filed: 01/29/24 21:39> General General appearance: alert and in no apparent distress Respiratory Respiratory exam: Present normal lung sounds bilaterally Cardiovascular Cardiovascular exam: Present regular rate and normal rhythm Neurological Exam Neurological exam: Present alert and oriented X3 Medical Decision Making <CHAMP Enciso - Last Filed: 01/29/24 21:39> Medical Records Medical records reviewed: Yes I reviewed the patient's medical records. Tray Inquiry Pt receiving controlled substance: No Vital Signs: 01/29/24 19:48 01/29/24 19:53 01/29/24 20:00 Temperature 98.3 F Temperature Source Oral Pulse Rate 100 H 115 H Pulse Rate [Right Radial] 98 H Respiratory Rate 20 Blood Pressure 135/87 146/80 H Blood Pressure [Right Arm] 135/87 Blood Pressure Mean 101 102 Blood Pressure Mean [Right Arm] 103 02 Sat by Pulse Oximetry 95 95 95 Oxygen Delivery Method Room Air Room Air Room Air 01/29/24 20:37 Temperature Temperature Source Pulse Rate 105 H Pulse Rate [Right Radial] Respiratory Rate Blood Pressure 160/91 H Blood Pressure [Right Arm] Blood Pressure Mean 105 Blood Pressure Mean [Right Arm] 02 Sat by Pulse Oximetry 96 Oxygen Delivery Method Room Air Lab Data Lab results reviewed: Yes I reviewed the patient's lab results. Lab Results 01/29/24 20:05: WBC 7.8, RBC 4.80, Hgb 14.1, Hct 44.6, MCV 92.9, MCH 29.5, MCHC 31.7 L, RDW 14.2, Plt Count 259, MPV 8.7, Neut % (Auto) 64.8, Lymph % (Auto) 28.1, [place] % (Auto) 5.1, Eos % (Auto) 0.7, Baso % (Auto) 1.2, Neut # (Auto) 5.0, Lymph # (Auto) 2.2, [place] # (Auto) 0.4, Eos # (Auto) 0.1, Baso # (Auto) 0.1, PT 10.8, INR 0.96, Sodium 139, Potassium 4.2, Chloride 104, Carbon Dioxide 25, Anion Gap 14.2, BUN 10, Creatinine 0.60, Estimated Creat Clear 141, Estimated GFR 104, Est GFR ( Amer) 126, Glucose 126 H, Calcium 9.7, Total Bilirubin 0.7, AST 154 H, ALT 161 H, Alkaline Phosphatase 81, Total Protein 8.8 H, Albumin 4.8, Globulin 4.0 H, Albumin/Globulin Ratio 1.2 01/29/24 20:05 01/29/24 20:05 Orders (Tests/Meds): ED MEDICATIONS Generic Name Dose Route Start Last Admin Trade Name Freq PRN Reason Stop Dose Admin Acetaminophen 650 mg 01/29/24 21:38 Acetaminophen 325mg Tab PO 02/28/24 21:37 Q4HP PRN Fever or Mild Pain (1-3) Heparin Sodium/Dextrose 500 mls @ 30 mls/hr 01/29/24 20:30 01/29/24 20:38 Heparin 25,000 Units In D5w 500ml Premix IV 02/28/24 20:29 30 mls/hr .[id number] KING Administration 1,500 UNITS/HR Miscellaneous 1 each 01/29/24 20:15 01/29/24 20:39 Heparin Drip Consult NOTAPPLIC 02/28/24 20:14 1 each CONSULT PHARMACY KING Administration Morphine Sulfate 2 mg 01/29/24 21:38 Morphine 2mg/Ml Syringe IV 02/28/24 21:37 Q2HP PRN Severe Pain (7-10) Ondansetron HCl 4 mg 01/29/24 21:38 Ondansetron 4mg/2ml Vial IV 02/28/24 21:37 Q8HP PRN Nausea Pantoprazole Sodium 40 mg 01/30/24 09:00 Pantoprazole 40mg Tablet PO 02/29/24 08:59 DAILY KING Sodium Chloride 10 ml 01/29/24 20:57 01/29/24 20:58 Sodium Chloride 0.9% 10ml Syr (Rad Only) IV 02/28/24 20:56 10 ml NEEDED PRN Administration Maintain IV Site Discontinued Medications Generic Name Dose Route Start Last Admin Trade Name Freq PRN Reason Stop Dose Admin Acetaminophen 1,000 mg 01/29/24 19:59 01/29/24 20:15 Acetaminophen 1,000mg/100ml Vial IV 01/29/24 20:00 1,000 mg ONCE ONE Administration Aspirin 325 mg 01/29/24 20:13 01/29/24 21:28 Aspirin 325mg Tablet PO 01/29/24 20:14 325 mg ONCE ONE Administration Heparin Sodium (Porcine) 6,600 unit 01/29/24 20:30 01/29/24 20:37 Heparin Sodium 5,000 Unit/Ml Vial IV 01/29/24 20:31 6,600 unit ONCE ONE Administration Iopamidol 120 ml 01/29/24 20:57 01/29/24 20:58 Iopamidol-370 (76%);100ml Bottle IV 01/29/24 20:58 120 ml ONCE ONE Administration Sodium Chloride 100 ml 01/29/24 20:57 01/29/24 20:58 0.9 % Sodium Chloride 50 Ml Vial IV 01/29/24 20:58 100 ml ONCE ONE Administration ORDERS Category Date Time Status CT angio abdomen/femoral Stat Cat Scan 01/29/24 20:02 Completed Cardiology Consult [Consult to Cardiology] [CONS] Cons 01/29/24 21:38 Active Routine Foot XR left 2 views [XR foot LT 2V] Stat Exams 01/29/24 19:55 Completed CBC w/Auto Diff [Complete Blood Count Auto Diff] Stat Lab 01/29/24 20:05 Completed CMP [Comprehensive Metabolic Panel] Stat Lab 01/29/24 20:05 Completed Complete Blood Count Auto Diff AMLAB Lab 01/30/24 06:00 Ordered Comprehensive Metabolic Panel AMLAB Lab 01/30/24 06:00 Ordered Heparin drip PTT [PTT Heparin (inpatient only)] Stat Lab 01/29/24 22:30 Ordered INR [Prothrombin Time INR] Stat Lab 01/29/24 20:05 Completed Medical Decision Narrative: In summary patient is a patient is a 53-year-old female who presents to the emergency department for evaluation of left fourth toe problem. Patient is hemodynamically stable upon arrival, afebrile. Physical exam shows a nontender to palpation left fourth toe that is purple from the MTP to the tip. Patient does have cap refill less than 3 seconds and the toe was warm. There is no tenderness to range of motion testing no palpable bony deformity. Differential diagnosis includes fracture versus contusion versus arterial thrombus. Initial workup will be conducted with hematologic labs twelve-lead EKG CTA of the abdomen pelvis and left lower extremity. Initial interventions are deferred for now as patient actually has no complaints other than the color of her toe. Initial workup reviewed by me shows no acute fracture on plain film x-ray and my informal interpretation of his CTA shows prior to radiology read. Upon repeat evaluation patient reports no change in the interval. Given this I had an interactive discussion with cardiology about patient management who recommended heparin drip statin and aspirin if not already on them and they will evaluate tomorrow. I then contacted hospital medicine and had a interact discussion about patient management and she will be admitted for further evaluation and care <Bob Barrett MD - Last Filed: 01/29/24 22:02> Vital Signs: 01/29/24 19:48 01/29/24 19:53 01/29/24 20:00 Temperature 98.3 F Temperature Source Oral Pulse Rate 100 H 115 H Pulse Rate [Right Radial] 98 H Respiratory Rate 20 Blood Pressure 135/87 146/80 H Blood Pressure [Right Arm] 135/87 Blood Pressure Mean 101 102 Blood Pressure Mean [Right Arm] 103 02 Sat by Pulse Oximetry 95 95 95 Oxygen Delivery Method Room Air Room Air Room Air 01/29/24 20:37 Temperature Temperature Source Pulse Rate 105 H Pulse Rate [Right Radial] Respiratory Rate Blood Pressure 160/91 H Blood Pressure [Right Arm] Blood Pressure Mean 105 Blood Pressure Mean [Right Arm] 02 Sat by Pulse Oximetry 96 Oxygen Delivery Method Room Air Lab Data Lab Results 01/29/24 20:05: WBC 7.8, RBC 4.80, Hgb 14.1, Hct 44.6, MCV 92.9, MCH 29.5, MCHC 31.7 L, RDW 14.2, Plt Count 259, MPV 8.7, Neut % (Auto) 64.8, Lymph % (Auto) 28.1, [place] % (Auto) 5.1, Eos % (Auto) 0.7, Baso % (Auto) 1.2, Neut # (Auto) 5.0, Lymph # (Auto) 2.2, [place] # (Auto) 0.4, Eos # (Auto) 0.1, Baso # (Auto) 0.1, PT 10.8, INR 0.96, Sodium 139, Potassium 4.2, Chloride 104, Carbon Dioxide 25, Anion Gap 14.2, BUN 10, Creatinine 0.60, Estimated Creat Clear 141, Estimated GFR 104, Est GFR ( Amer) 126, Glucose 126 H, Calcium 9.7, Total Bilirubin 0.7, AST 154 H, ALT 161 H, Alkaline Phosphatase 81, Total Protein 8.8 H, Albumin 4.8, Globulin 4.0 H, Albumin/Globulin Ratio 1.2 Orders (Tests/Meds): ED MEDICATIONS Generic Name Dose Route Start Last Admin Trade Name Freq PRN Reason Stop Dose Admin Acetaminophen 650 mg 01/29/24 21:38 Acetaminophen 325mg Tab PO 02/28/24 21:37 Q4HP PRN Fever or Mild Pain (1-3) Heparin Sodium/Dextrose 500 mls @ 30 mls/hr 01/29/24 20:30 01/29/24 20:38 Heparin 25,000 Units In D5w 500ml Premix IV 02/28/24 20:29 30 mls/hr .[id number] KING Administration 1,500 UNITS/HR Miscellaneous 1 each 01/29/24 20:15 01/29/24 20:39 Heparin Drip Consult NOTAPPLIC 02/28/24 20:14 1 each CONSULT PHARMACY KING Administration Morphine Sulfate 2 mg 01/29/24 21:38 Morphine 2mg/Ml Syringe IV 02/28/24 21:37 Q2HP PRN Severe Pain (7-10) Ondansetron HCl 4 mg 01/29/24 21:38 Ondansetron 4mg/2ml Vial IV 02/28/24 21:37 Q8HP PRN Nausea Pantoprazole Sodium 40 mg 01/30/24 09:00 Pantoprazole 40mg Tablet PO 02/29/24 08:59 DAILY KING Sodium Chloride 10 ml 01/29/24 20:57 01/29/24 20:58 Sodium Chloride 0.9% 10ml Syr (Rad Only) IV 02/28/24 20:56 10 ml NEEDED PRN Administration Maintain IV Site Discontinued Medications Generic Name Dose Route Start Last Admin Trade Name Freq PRN Reason Stop Dose Admin Acetaminophen 1,000 mg 01/29/24 19:59 01/29/24 20:15 Acetaminophen 1,000mg/100ml Vial IV 01/29/24 20:00 1,000 mg ONCE ONE Administration Aspirin 325 mg 01/29/24 20:13 01/29/24 21:28 Aspirin 325mg Tablet PO 01/29/24 20:14 325 mg ONCE ONE Administration Heparin Sodium (Porcine) 6,600 unit 01/29/24 20:30 01/29/24 20:37 Heparin Sodium 5,000 Unit/Ml Vial IV 01/29/24 20:31 6,600 unit ONCE ONE Administration Iopamidol 120 ml 01/29/24 20:57 01/29/24 20:58 Iopamidol-370 (76%);100ml Bottle IV 01/29/24 20:58 120 ml ONCE ONE Administration Sodium Chloride 100 ml 01/29/24 20:57 01/29/24 20:58 0.9 % Sodium Chloride 50 Ml Vial IV 01/29/24 20:58 100 ml ONCE ONE Administration ORDERS Category Date Time Status CT angio abdomen/femoral Stat Cat Scan 01/29/24 20:02 Completed Cardiology Consult [Consult to Cardiology] [CONS] Cons 01/29/24 21:38 Active Routine Foot XR left 2 views [XR foot LT 2V] Stat Exams 01/29/24 19:55 Completed CBC w/Auto Diff [Complete Blood Count Auto Diff] Stat Lab 01/29/24 20:05 Completed CMP [Comprehensive Metabolic Panel] Stat Lab 01/29/24 20:05 Completed Complete Blood Count Auto Diff AMLAB Lab 01/30/24 06:00 Ordered Comprehensive Metabolic Panel AMLAB Lab 01/30/24 06:00 Ordered Heparin drip PTT [PTT Heparin (inpatient only)] Stat Lab 01/29/24 22:30 Ordered INR [Prothrombin Time INR] Stat Lab 01/29/24 20:05 Completed ECG Data Tracing #1: Independently inter by me rate is 106, rhythm is largely regular, axis normal, no ST elevation in anatomical contiguous leads, intermittent PVCs, QTc 403 Medical Decision Narrative: In summary patient is a patient is a 53-year-old female who presents to the emergency department for evaluation of left fourth toe problem. Patient is hemodynamically stable upon arrival, afebrile. Physical exam shows a nontender to palpation left fourth toe that is purple from the MTP to the tip. Patient does have cap refill less than 3 seconds and the toe was warm. There is no tenderness to range of motion testing no palpable bony deformity. Differential diagnosis includes fracture versus contusion versus arterial thrombus. Initial workup will be conducted with hematologic labs twelve-lead EKG CTA of the abdomen pelvis and left lower extremity. Initial interventions are deferred for now as patient actually has no complaints other than the color of her toe. Initial workup reviewed by me shows no acute fracture on plain film x-ray and my informal interpretation of his CTA shows prior to radiology read. Upon repeat evaluation patient reports no change in the interval. Given this I had an interactive discussion with cardiology about patient management who recommended heparin drip statin and aspirin if not already on them and they will evaluate tomorrow. I then contacted hospital medicine and had a interact discussion about patient management and she will be admitted for further evaluation and care. I was consulted by the CHANEL, and we discussed the complexity of the problems being addressed. I approved the treatment and management plan for this patient's care in the emergency department, thus performing a substantive portion of the medical decision making. I saw this patient personally, she has acute atraumatic purple toe syndrome for which it is likely that she had a cardiovascular event. Upon multiple questioning from different providers it is unknown if she has trauma however she did not have any trauma for me. Given this and the fact that her x-ray shows no acute fracture on my interpretation the benefits outweigh the risk for empiric anticoagulation. CTA with runoff conduct as well as hematologic labs after discussing the case with Dr. Hardwick and patient was admitted on heparin in stable condition. Bob Barrett MD Critical Care <CHAMP Enciso - Last Filed: 01/29/24 21:39> Critical Care Time Critical Care Time: No
--- NOTE | 2024-01-29 19:55 | XR_ITS ---
PROCEDURE INFORMATION: Exam: XR Left Foot Exam date and time: 01/29/2024 7:53 PM Age: 53 years old Clinical indication: Other: Bruising to 4th digit; Additional info: Possible injury fourth toe TECHNIQUE: Imaging protocol: Radiologic exam of the left foot. Views: 1 or 2 views. COMPARISON: CR XR FOOT WT BEARING LT 3V 07/13/2021 4:48 PM FINDINGS: Bones/joints: Very small calcaneal spurs. No acute fracture or dislocation. Chronic healed fracture of the distal 4th metatarsal shaft. Mild narrowing of the 1st MTP joint. Soft tissues: Normal. IMPRESSION: No acute findings.
[2024-01-29 20:00] VITALS: BP 146/80; PULSE 115; O2SAT 95
--- NOTE | 2024-01-29 20:00 | ECG_ITS ---
APPROVED REPORT Exam: Resting ECG HR:106 bpm ECG Measurements Heart Rate 106 AXES CA 158 P 52 QRSd 81 QRS 39 QT 341 T 64 QTc 403 Conclusion SINUS TACHYCARDIA WITH FREQUENT VENTRICULAR PREMATURE COMPLEXES LOW QRS VOLTAGE IN PRECORDIAL LEADS [QRS DEFLECTION < 1.0 mV IN CHEST LEADS] ABNORMAL RHYTHM ECG Electronically signed by : MALIKA NICOLAS, 01/29/2024 23:26:41
--- NOTE | 2024-01-29 20:02 | CT_ITS ---
PROCEDURE INFORMATION: Exam: CTA Abdominal Aorta and Bilateral Lower Extremities (Run-off) With Contrast Exam date and time: 01/29/2024 8:27 PM Age: 53 years old Clinical indication: Other: Nontraumatic purple left fourth toe TECHNIQUE: Imaging protocol: Computed tomographic angiography of the of the abdominal aorta, pelvis and bilateral lower extremities with contrast. 3D rendering (Not supervised by radiologist): MIP and/or 3D reconstructed images were created by the technologist. Radiation optimization: All CT scans at this facility use at least one of these dose optimization techniques: automated exposure control; mA and/or kV adjustment per patient size (includes targeted exams where dose is matched to clinical indication); or iterative reconstruction. Contrast material: ISOUVE 370; Contrast volume: 120 ml; Contrast route: INTRAVENOUS (IV); COMPARISON: CR XR FOOT LT 2V 01/29/2024 7:53 PM FINDINGS: Aorta: No aortic aneurysm. No aortic dissection. Minor atherosclerotic changes. Celiac trunk and mesenteric arteries: No occlusion or significant stenosis. Renal arteries: No occlusion or significant stenosis. Right iliac arteries: No occlusion or significant stenosis. Minor atherosclerotic changes. Right femoral/popliteal arteries: No occlusion or significant stenosis. Right infrapopliteal arteries: No occlusion or significant stenosis. Left iliac arteries: No occlusion or significant stenosis. Minor atherosclerotic changes. Left femoral/popliteal arteries: No occlusion or significant stenosis. Left infrapopliteal arteries: No occlusion or significant stenosis. Liver: No mass. Cirrhotic liver morphology. Gallbladder and biliary ducts: Cholecystectomy. No ductal dilation. Pancreas: Unremarkable. No mass. No ductal dilation. Spleen: Normal. No splenomegaly. Adrenal glands: Normal. No mass. Kidneys and ureters: 3.4 cm simple left renal cyst. Stomach and bowel: Unremarkable. No obstruction. No mucosal thickening. Appendix: No evidence of appendicitis. Urinary bladder: Unremarkable. No mass. Reproductive: Hysterectomy. Intraperitoneal space: Unremarkable. No free air. No significant fluid collection. Lymph nodes: No lymphadenopathy. Bones/joints: No acute fracture. No dislocation. Soft tissues: Small fat containing umbilical hernia. IMPRESSION: 1. Minor atherosclerotic changes within the aorta and iliac arteries. 2. Cirrhosis. 3. 3.4 cm simple left renal cyst. No additional follow-up imaging is recommended..
--- NOTE | 2024-01-29 20:05 | PC.NURSE ---
speaking with dr wills at this time.
[2024-01-29] MEDS: ACETAMINOPHEN 1,000MG/100ML VIAL 1000 MG IV (20:15)
[2024-01-29 20:24] LABS: Alanine Aminotransferase 161 U/L (12-78); Albumin Level 4.8 g/dl (3.5-5.0); Albumin/Globulin Ratio 1.2 (1.1-1.8); Alkaline Phosphatase 81 U/L (38-126); Anion Gap 14.2 mEq/L (5-15); Aspartate Amino Transferase 154 U/L (14-36); Bilirubin,Total 0.7 mg/dl (0.2-1.3); Blood Urea Nitrogen 10 mg/dl (7-17); Calcium 9.7 mg/dl (8.4-10.2); Carbon Dioxide 25 mmol/L (22.0-30.0); Chloride 104 mmol/L (98-107); Creatinine Clearance Estimated 141 mL/min (50-200); Estimated Glomerular Filt Rate 104 ml/min (>60); GFR (African American) 126 ML/MIN (>60); Glucose 126 mg/dl (74-100); Potassium 4.2 mmoL/L (3.5-5.1); Sodium 139 mmol/L (136-145); Total Protein,Serum 8.8 g/dl (6.3-8.2)
[2024-01-29 20:26] LABS: INR 0.96 (0.9-1.1); Prothrombin Time 10.8 seconds (10.1-12.5)
[2024-01-29 20:28] LABS: Basophils # 0.1 K/mm3 (0-0.2); Basophils % 1.2 % (0.1-2.0); Eosinophils # 0.1 K/mm3 (0.0-0.4); Eosinophils % 0.7 % (0.1-12.0); Hematocrit 44.6 % (37.0-47.0); Hemoglobin 14.1 g/dL (12.2-16.2); Lymphocytes # 2.2 K/mm3 (0.7-4.5); Lymphocytes % 28.1 % (10-50); Mean Corpuscular HGB Conc 31.7 g/dL (31.8-35.4); Mean Corpuscular Hemoglobin 29.5 pg (27.0-31.2); Mean Corpuscular Volume 92.9 fl (81-99); Mean Platelet Volume 8.7 fl (7.4-10.4); Monocytes # 0.4 K/mm3 (0.1-1.0); Monocytes % 5.1 % (1.7-9.3); Neutrophils % 64.8 % (37.0-80.0); Platelet Count 259 K/mm3 (142-424); Red Cell Distribution Width 14.2 % (11.5-17.5); White Blood Count 7.8 K/mm3 (4.8-10.8)
[2024-01-29 20:37] VITALS: BP 160/91; PULSE 105; O2SAT 96
[2024-01-29] MEDS: HEPARIN SODIUM 5,000 UNIT/ML VIAL 6600 UNIT IV (20:37)
[2024-01-29] MEDS: HEPARIN 25,000 UNITS/D5W 500 ML 30 UNIT IV (20:38)
[2024-01-29] MEDS: HEPARIN DRIP CONSULT 1 EACH NOTAPPLIC (20:39)
[2024-01-29] MEDS: 0.9 % SODIUM CHLORIDE 50 ML VIAL 100 ML IV (20:58)
[2024-01-29] MEDS: SODIUM CHLORIDE 0.9% 10ML SYR (RAD ONLY) 10 ML IV (20:58)
[2024-01-29] MEDS: IOPAMIDOL-370 (76%);100ML BOTTLE 120 ML IV (20:58)
--- NOTE | 2024-01-29 21:36 | PC.NURSE ---
pt ambulated to bathroom at this time.
--- NOTE | 2024-01-29 21:42 | EXP.HP ---
History of Present Illness *Admission Date: 01/29/24 *Reason for visit:: toe discoloration *History of present illness: This is a 53-year-old female with PMHX of NIDDM, HTN, HLD, presented to ED for evaluation of a left toe discoloration. Patient states that she noticed that her left fourth toe was turning black . Patient can not recall any known trauma, however, she did state later though that a grandchild walked over her bare toe. She noticed that it might have been slightly sore at some point today and happened to look down and noticed that her toe was dark in color. She denies any fever chills hemoptysis hematochezia melena hematemesis hematuria chest pain or shortness of breath. Admitted for further management. [facility] Disclaimer: The information contained in this section may have been updated after the patient was seen, as this information can be updated by other users. Medical History (Updated 01/30/24 @ 11:41 by CHAMP Avila) Pedal edema Foot pain Crush injury of right foot Puncture wound of right foot Foreign body in right foot Lumbar strain Sinusitis Upper respiratory infection Social History (Updated 01/29/24 @ 22:48 by Abhilash Lees RN) Smoking Status: Former smoker alcohol intake: current alcohol intake frequency: holidays/special occasions only current occupational status: other Travel in the last 8 weeks: None Review of Systems Review of Systems Review of systems:: pertinent systems reviewed and negative unless documented below Meds Home Medications and Allergies Home Medications ?Medication ?Instructions ?Recorded ?Confirmed ?Type lisinopril 10 mg tablet 10 mg PO DAILY 08/29/17 01/29/24 History pravastatin 40 mg tablet 40 mg PO HS 08/29/17 01/29/24 History cetirizine 10 mg tablet 10 mg PO DAILY 06/17/18 01/29/24 History cholecalciferol (vitamin D3) 25 1,000 unit PO DAILY 06/17/18 01/29/24 History mcg (1,000 unit) capsule omeprazole 20 mg capsule,delayed 20 mg PO DAILYP PRN Acid Reflux 07/16/20 01/30/24 History release buspirone 15 mg tablet 15 mg PO BID 07/13/21 01/29/24 History gabapentin 100 mg capsule 200 mg PO HS 07/13/21 01/29/24 History glimepiride 1 mg tablet 1 mg PO DAILY 07/13/21 01/29/24 History metformin 500 mg tablet,extended 1,000 mg PO BID 07/13/21 01/29/24 History release 24 hr dulaglutide 0.75 mg/0.5 mL 0.75 mg SQ WEEKLY 01/29/24 01/29/24 History subcutaneous pen injector (Trulicity) diltiazem HCl 120 mg capsule,24 120 mg PO DAILY 01/30/24 01/30/24 History hr,extended release tacrolimus 0.1 % topical ointment 1 applic topical BID 01/30/24 01/30/24 History New Prescriptions to Start Prescriptions: Allergies Allergy/AdvReac Type Severity Reaction Status Date / Time adhesive Allergy Verified 05/31/23 19:46 Exam Data for Last 24 hours Vital signs and Labs for Last 24 Hours: Temp Pulse Resp BP Pulse Ox O2 Del Method 98.3 F 105 H 20 160/91 H 96 Room Air 01/29/24 19:48 01/29/24 20:37 01/29/24 19:48 01/29/24 20:37 01/29/24 20:37 01/29/24 20:37 Laboratory Results - last 24 hr 01/29/24 20:05: WBC 7.8, RBC 4.80, Hgb 14.1, Hct 44.6, MCV 92.9, MCH 29.5, MCHC 31.7 L, RDW 14.2, Plt Count 259, MPV 8.7, Neut % (Auto) 64.8, Lymph % (Auto) 28.1, [place] % (Auto) 5.1, Eos % (Auto) 0.7, Baso % (Auto) 1.2, Neut # (Auto) 5.0, Lymph # (Auto) 2.2, [place] # (Auto) 0.4, Eos # (Auto) 0.1, Baso # (Auto) 0.1, PT 10.8, INR 0.96, Sodium 139, Potassium 4.2, Chloride 104, Carbon Dioxide 25, Anion Gap 14.2, BUN 10, Creatinine 0.60, Estimated Creat Clear 141, Estimated GFR 104, Est GFR ( Amer) 126, Glucose 126 H, Calcium 9.7, Total Bilirubin 0.7, AST 154 H, ALT 161 H, Alkaline Phosphatase 81, Total Protein 8.8 H, Albumin 4.8, Globulin 4.0 H, Albumin/Globulin Ratio 1.2 I & O for Last 24 hours: Intake & Output 01/26/24 01/27/24 01/28/24 01/29/24 23:59 23:59 23:59 23:59 Weight 83.461 kg Constitutional Constitutional: no acute distress *Routine HEENT Exam Head: Present normocephalic Eye: Present EOMI and PERRL ENT: Present mucous membranes moist *Routine Neck Exam Neck: Present supple; Absent lymphadenopathy *Routine Respiratory Exam Respiratory: Present CTA bilaterally *Routine Cardiovascular Exam Cardiovascular: Present RRR *Routine Abdominal Exam Abdominal: Present soft and normoactive bowel sounds; Absent tenderness *Routine Rectal Exam Rectal:: deferred *Routine Genitalia Exam Genitalia:: deferred *Routine Extremities Exam Extremities: Present full ROM and pulses intact; Absent cyanosis, clubbing or edema *Routine Skin Exam Skin: Present intact and warm; Absent rash *Routine Neurological Exam Neurological: Present alert and oriented X3 Detailed Lower Extremity Exam Top foot image: 1. bruised Bottom foot image: 1. bruised H&P: Result Imaging and Cardiology EKG: Status: Preliminary report and final report CT scan - abdomen: Status: image reviewed by me, Preliminary report and final report FOOT Xray : Status: image reviewed by me, Preliminary report and final report Assessment and Plan *Assessment and plan (1) Bruise of toe: Status: Acute Category: Medical Code(s): S90.129A - Contusion of unspecified lesser toe(s) without damage to nail, initial encounter (2) Non-alcoholic fatty liver disease: Status: Acute Category: Medical Code(s): K76.0 - Fatty (change of) liver, not elsewhere classified (3) Hypertension: Status: Acute Qualifiers: Hypertension type: unspecified Qualified Code(s): I10 - Essential (primary) hypertension Category: Medical Code(s): I10 - Essential (primary) hypertension (4) Diabetes: Status: Acute Qualifiers: Diabetes mellitus complication status: with other specified complication Diabetes mellitus fdc insulin use: 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 Patient states that she noticed that her left fourth toe was turning black . Patient can not recall any known trauma, however, she did state later though that a grandchild walked over her bare toe. On arrival Xray was obtained and negative for acute trauma. CT of the abdomen does not reveal any acute traumatic injury. There is a concern for cirrhosis changes of the liver patient has history of fatty liver nonalcoholic cirrhosis. ER started on continuous heparin infusion while cardiology was consulted. They requested admission for further management./I agree for it /. Plan as follow: -Bruised toe: Low concern for purple toe syndrome: Admitted for inpatient monitoring. Started on heparin drip, per cardiology recommendation we will see and evaluate the morning. Cardiology consult Patient has no pain pulses are intact. 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 Rest of the vitals per unit protocol Repeat labs in the morning -History of nonalcoholic fatty liver disease: CTA of the abdomen that showed cirrhosis aspect of the liver. Patient will need outpatient workup for definitive diagnosis. Recommended GI follow-up for -Hypertension and diabetes: Condition reviewed. Seems stable Resume metformin and home regiment -Abnormal BMI: Patient currently on body weight reduction program encouraged to continue reducing weight. PCP to follow abnormal BMI On heparin drip. Protonix for GI bleed protection Full code
--- NOTE | 2024-01-29 22:13 | PC.NURSE ---
called report to cheryl francisco on second floor
--- NOTE | 2024-01-29 22:37 | PC.NURSE ---
patient arrived to floor and asked what brought her in - she stated i think my granddaughter stepped on my toe . see wound note for picture.
[2024-01-29 22:40] VITALS: BP 145/85; PULSE 86; RESP 20; TEMP 36.8; O2SAT 99
--- NOTE | 2024-01-29 22:40 | PC.NURSE ---
Patient arrived to floor via wheelchair from ED at 22:34.
--- NOTE | 2024-01-29 23:14 | PC.WOUNDNOTE ---
left 4th toe
[2024-01-29 23:18] LABS: D-Dimer < 0.25 ug/mL (0.0-0.5)
[2024-01-29] MEDS: GABAPENTIN 100MG CAPSULE 200 MG PO (23:31)
[2024-01-29] MEDS: LISINOPRIL 10MG TABLET 10 MG PO (23:31)
[2024-01-29] MEDS: PATIENT'S OWN HOME MEDICATION (Buspirone 15 mg tablet) 15 EACH PO (23:31)
[2024-01-29] MEDS: PATIENT'S OWN HOME MEDICATION (Metformin 500 mg tablet extended release 24 hr) 1000 EACH PO (23:31)
[2024-01-29] MEDS: dilTIAZem ER 120MG CAPSULE 120 MG PO (23:31)
[2024-01-29] MEDS: PRAVASTATIN 40MG TAB 40 MG PO (23:31)
--- NOTE | 2024-01-29 23:44 | PC.NURSE ---
Addendum entered by Abhilash Lees RN 01/30/24 03:44: spoke with ashli from [facility], no adjustments per 0100 APTT of 65.7. recheck lab again at 0500. Original Note: contacted Amy at [facility] r/t APTT for Heparin gtt - no change in rate at this time and remaining at 1500u/hr - 30ml/hr. repeated APTT at 0100.
[2024-01-30] VITALS: BP 120/76; PULSE 88; RESP 16; TEMP 36.8; O2SAT 96
[2024-01-30 01:47] LABS: PTT Heparin (inpatient only) 65.7 Seconds (50-75)
[2024-01-30] MEDS: ASPIRIN 325MG TABLET 325 MG PO (03:12)
[2024-01-30 04:00] VITALS: BP 129/75; PULSE 80; RESP 16; TEMP 36.6; O2SAT 97; BMI 28.8
[2024-01-30 06:27] LABS: Basophils # 0.1 K/mm3 (0-0.2); Basophils % 0.7 % (0.1-2.0); Eosinophils # 0.1 K/mm3 (0.0-0.4); Eosinophils % 1.1 % (0.1-12.0); Lymphocytes # 2.4 K/mm3 (0.7-4.5); Lymphocytes % 35.4 % (10-50); Mean Corpuscular HGB Conc 32.4 g/dL (31.8-35.4); Mean Corpuscular Hemoglobin 29.7 pg (27.0-31.2); Mean Corpuscular Volume 91.7 fl (81-99); Mean Platelet Volume 9.3 fl (7.4-10.4); Monocytes # 0.4 K/mm3 (0.1-1.0); Monocytes % 5.7 % (1.7-9.3); Neutrophils # 3.9 K/mm3 (1.8-7.8); Platelet Count 214 K/mm3 (142-424); Red Blood Count 4.36 M/mm3 (4.20-5.40); Red Cell Distribution Width 14.5 % (11.5-17.5); White Blood Count 6.9 K/mm3 (4.8-10.8)
[2024-01-30 06:36] LABS: Alanine Aminotransferase 134 U/L (12-78); Albumin Level 4.2 g/dl (3.5-5.0); Albumin/Globulin Ratio 1.2 (1.1-1.8); Alkaline Phosphatase 84 U/L (38-126); Anion Gap 13.9 mEq/L (5-15); Aspartate Amino Transferase 116 U/L (14-36); Bilirubin,Total 0.4 mg/dl (0.2-1.3); Blood Urea Nitrogen 8 mg/dl (7-17); Calcium 9.3 mg/dl (8.4-10.2); Carbon Dioxide 24 mmol/L (22.0-30.0); Chloride 106 mmol/L (98-107); Creatinine Clearance Estimated 141 mL/min (50-200); Estimated Glomerular Filt Rate 104 ml/min (>60); GFR (African American) 126 ML/MIN (>60); Globulin 3.4 g/dL (1.3-3.2); Glucose 105 mg/dl (74-100); Potassium 3.9 mmoL/L (3.5-5.1); Sodium 140 mmol/L (136-145); Total Protein,Serum 7.6 g/dl (6.3-8.2)
--- NOTE | 2024-01-30 07:39 | HMH.PHAINT1 ---
Pharmacy Intervention Comments: HOME MEDICATION LIST VERIFIED USING LIST FROM OUTPATIENT PHARMACY AND PT INTERVIEW
[2024-01-30 08:00] VITALS: BP 120/74; PULSE 85; RESP 16; TEMP 36.8; O2SAT 95
[2024-01-30] MEDS: CHOLECALCIFEROL 1,000 UNITS (25MCG) TABLET 25 MCG PO (08:15)
[2024-01-30] MEDS: BUSPIRONE HCL 5 MG TABLET 15 MG PO (08:16)
[2024-01-30] MEDS: METFORMIN 500MG TABLET 1000 MG PO (08:16)
--- NOTE | 2024-01-30 08:23 | P.CONPHA_ITS ---
[facility] Pharmacy Heparin Dosing Demographic Data Admission date:: 01/29/24 Date: 01/30/24 Time: 08:23 Allergies Allergy/AdvReac Type Severity Reaction Status Date / Time adhesive Allergy Verified 05/31/23 19:46 Height: 1.68 m Weight: 81.221 kg Indication Medication therapy:: Heparin Current Indications:: SUSPECTED DVT - HIGH DOSE PROTOCOL Current Active Problems (Updated 01/30/24 @ 11:41 by CHAMP Avila) Hyperlipidemia (Acute) Bruise of toe (Acute) Non-alcoholic fatty liver disease (Acute) Purple toe syndrome of left foot (Acute) Hypertension (Acute) Diabetes (Acute) Overweight with body mass index (BMI) 25.0-29.9 (Acute) CVA?: No Bleeding problem?: No Kidney disease?: No NM?: No Desired PTT range:: 50-75 seconds Labs Anticoagulation Lab Results:: 01/29/24 01/30/24 20:05 05:19 Hgb 14.1 13.0 Hct 44.6 40.0 Plt Count 259 214 Monitoring Dose Monitor 1: Date: 01/29/24 Time: 20:22 PTT Result:: BASELINE NOT OBTAINED BY JOON. Infusion Rate:: JOON RECOMMENDED INITIATING HEPARIN DRIP AT 1500 UNITS/HOUR = 30 ML/HOUR AND BOLUS 6600 UNITS IV ONCE. Comment:: PLATELET COUNT = 259,000. Dose Monitor 2: Date: 01/29/24 Time: 22:40 PTT Result:: 92.0 SECONDS Infusion Rate:: CONTINUE CURRENT HEPARIN DRIP RATE OF 1500 UNITS/HOUR = 30 ML/HR. Dose Monitor 3: Date: 01/30/24 Time: 01:00 PTT Result:: 65.7 SECONDS Infusion Rate:: CONTINUE CURRENT HEPARIN DRIP RATE OF 1500 UNITS/HOUR = 30 ML/HR. Dose Monitor 4: Date: 01/30/24 Time: 05:00 PTT Result:: 61.0 SECONDS Infusion Rate:: CONTINUE CURRENT HEPARIN DRIP RATE OF 1500 UNITS/HOUR = 30 ML/HR. Dose Monitor 5: Date: 01/30/24 Time: 09:00 PTT Result:: 63.5 SECONDS Infusion Rate:: CONTINUE CURRENT HEPARIN DRIP RATE OF 1500 UNITS/HOUR = 30 ML/HR. Comment:: PATIENT DISCHARGE ORDER PLACED 01/30/24 12:36. Core Measures Is INR > or = 2 at discharge?: No Most Recent Labs:: Laboratory Results - last 24 hr 01/29/24 20:05: WBC 7.8, RBC 4.80, Hgb 14.1, Hct 44.6, MCV 92.9, MCH 29.5, MCHC 31.7 L, RDW 14.2, Plt Count 259, MPV 8.7, Neut % (Auto) 64.8, Lymph % (Auto) 28.1, [place] % (Auto) 5.1, Eos % (Auto) 0.7, Baso % (Auto) 1.2, Neut # (Auto) 5.0, Lymph # (Auto) 2.2, [place] # (Auto) 0.4, Eos # (Auto) 0.1, Baso # (Auto) 0.1, PT 10.8, INR 0.96, Sodium 139, Potassium 4.2, Chloride 104, Carbon Dioxide 25, Anion Gap 14.2, BUN 10, Creatinine 0.60, Estimated Creat Clear 141, Estimated GFR 104, Est GFR ( Amer) 126, Glucose 126 H, Calcium 9.7, Total Bilirubin 0.7, AST 154 H, ALT 161 H, Alkaline Phosphatase 81, Total Protein 8.8 H, Albumin 4.8, Globulin 4.0 H, Albumin/Globulin Ratio 1.2 01/29/24 22:40: APTT 92.0 H*, D-Dimer < 0.25 01/30/24 01:00: APTT 65.7 01/30/24 05:19: WBC 6.9, RBC 4.36, Hgb 13.0, Hct 40.0, MCV 91.7, MCH 29.7, MCHC 32.4, RDW 14.5, Plt Count 214, MPV 9.3, Neut % (Auto) 57.0, Lymph % (Auto) 35.4, [place] % (Auto) 5.7, Eos % (Auto) 1.1, Baso % (Auto) 0.7, Neut # (Auto) 3.9, Lymph # (Auto) 2.4, [place] # (Auto) 0.4, Eos # (Auto) 0.1, Baso # (Auto) 0.1, APTT 61.0, Sodium 140, Potassium 3.9, Chloride 106, Carbon Dioxide 24, Anion Gap 13.9, BUN 8, Creatinine 0.60, Estimated Creat Clear 141, Estimated GFR 104, Est GFR ( Amer) 126, Glucose 105 H, Calcium 9.3, Total Bilirubin 0.4, AST 116 H, ALT 134 H, Alkaline Phosphatase 84, Total Protein 7.6, Albumin 4.2 D, Globulin 3.4 H, Albumin/Globulin Ratio 1.2 Were Heparin and Warfarin started on the same day?: No
--- NOTE | 2024-01-30 08:30 | CA_ITS ---
APPROVED REPORT EXAM: Comprehensive 2D, Doppler, and color-flow Echocardiogram Human Relations Manager: Iona Schroeder RVT Ht: 5 ft 6 in Wt: 179lbs BSA: 1.91 BP: 160/91 mmHg Indications: PURPLE TOE SYNDROME VS BRUISE,DM,HTN,HLD,EXSMOKER 2D Dimensions IVSd 0.73 cm F: 0.6-1.0 LVEF (Visual) 52.50 % PWd 0.69 cm F: 0.6 - 1.0 LVDd 4.54 cm F: 3.9 - 5.3 LVDs 3.32 cm F: 2.2 - 3.5 M-Mode Dimensions LA Diam 3.43 cm (1.9-4.0) LV Diastology E Decel Time 150 (160-240 msec) E/A Ratio 1.2 Aortic Valve [place] Index 1.83 cm2/m2 AoV Peak Jarrod. 109.0 (50-130 cm/s) AO Peak GR. 4.70 mmHg AO Mean GR. 2.40 (<5 mmHg) AO VTI 18.0 (18-25 cm) [place] (VTI) 3.56 (2.5-4.5 cm2) Mitral Valve MV E Max Jarrod. 76.0 (40-130 cm/s) MV A Velocity 66.0 (40-130 cm/s) E/A Ratio 1.16 MV PHT 44.0 ms Pulmonary Valve PV Peak Velocity 83.0 (50-150 cm/s) Tricuspid Valve TR P. Velocity 225.00 cm/s RAP Estimate 10.00 mmHg RVSP 30.20 mmHg Left Ventricle The left ventricle is normal size. The left ventricular systolic function is normal. The left ventricular ejection fraction is within the normal range. There is increased LV wall thickness. There is normal LV segmental wall motion. The left ventricular diastolic function is normal. LVEF is 55%. Right Ventricle Right ventricle is mildly dilated. The right ventricular systolic function is normal. Atria The left atrium size is normal. The right atrium size is normal. There is no Doppler evidence of interatrial shunt. Aortic Valve The aortic valve is mildly thickened. There is no aortic valvular stenosis. No aortic regurgitation is present. Mitral Valve Mild mitral annular calcification. The mitral valve is mildly thickened. No evidence of mitral valve stenosis. Trace mitral valve regurgitation noted. Tricuspid Valve The tricuspid valve leaflets are thin and pliable. Trace tricuspid regurgitation. There is insufficient TR jet to estimate RVSP. Pulmonic Valve The pulmonary valve is normal in structure. Trace pulmonic regurgitation. Great Vessels The aortic root is normal in size. The ascending aorta is not well visualized. IVC is normal in size and collapses >50% with inspiration. Pericardium There is no pericardial effusion. Other Information Study Quality: Technically Difficult Conclusion Technically difficult study due to poor accoustic windows. Normal biventricular systolic function. No significant valvular stenosis or regurgitation. No obvious evidence of masses or vegetations noted on this TTE. Electronically signed by : Cherrie Parham MD 01/30/2024 10:00:01
[2024-01-30 09:49] LABS: PTT Heparin (inpatient only) 63.5 Seconds (50-75)
[2024-01-30] MEDS: ASPIRIN 81MG CHEWABLE TABLET 81 MG PO (10:41)
--- NOTE | 2024-01-30 11:34 | EXP.CARD.CON ---
History of Present Illness History of Present Illness Consult date: 01/30/24 Requesting physician: Amalia Simpson Chief complaint: Purple toe syndrome Additional Medical History:: 1. Possible lupus A. Biopsies pending per patient 2. Ex smoker, stopped about 2002 A. Smoked age 11 to 32 3. Hypertension 4. Diabetes 5. Purple toe syndrome, 01/2024 A. Abdominal CTA, 01/29/2024, minor atherosclerosis of the aorta and iliac arteries. Cirrhosis. 3.4 cm simple left renal cyst. B. Echocardiogram, 01/30/2024, technically difficult study, normal biventricular systolic function, no significant valve disease. No masses or vegetations. C. Likely due to trauma 6. Hyperlipidemia History of present illness: This is a 53-year-old female with PMHX of NIDDM, HTN, HLD, presented to ED for evaluation of a left toe discoloration. Patient states that she noticed that her left fourth toe was turning black . Patient can not recall any known trauma, however, she did state later though that a grandchild walked over her bare toe. She noticed that it might have been slightly sore at some point today and happened to look down and noticed that her toe was dark in color. She denies any fever chills hemoptysis hematochezia melena hematemesis hematuria chest pain or shortness of breath. Admitted for further management. The above per Zander Aranda APRN for the hospitalist service Cardiology consulted for evaluation of vascular etiology. Patient denies any prior cardiovascular issues. She does have a good peripheral pulses in her left foot and it is warm. The distal tip of the fourth toe of the left foot is black. The nail is still intact. She denies any chest pain, pressure or tightness. No recent fever, chills, nausea, vomiting or diarrhea. No history of IV drug use. [facility] Disclaimer: The information contained in this section may have been updated after the patient was seen, as this information can be updated by other users. Medical History (Updated 01/30/24 @ 11:41 by CHAMP Avila) Pedal edema Foot pain Crush injury of right foot Puncture wound of right foot Foreign body in right foot Lumbar strain Sinusitis Upper respiratory infection Social History (Updated 01/29/24 @ 22:48 by Abhilash Lees RN) Smoking Status: Former smoker alcohol intake: current alcohol intake frequency: holidays/special occasions only current occupational status: other Travel in the last 8 weeks: None Review of Systems Review of Systems Review of systems:: pertinent systems reviewed and negative unless documented below Exam Data for Last 24 hours Vital signs and Labs for Last 24 Hours: Temp Pulse Resp BP Pulse Ox O2 Del Method 98.3 F 85 16 120/74 95 Room Air 01/30/24 08:00 01/30/24 08:00 01/30/24 08:00 01/30/24 08:00 01/30/24 08:00 01/30/24 10:46 Laboratory Results - last 24 hr 01/29/24 20:05: WBC 7.8, RBC 4.80, Hgb 14.1, Hct 44.6, MCV 92.9, MCH 29.5, MCHC 31.7 L, RDW 14.2, Plt Count 259, MPV 8.7, Neut % (Auto) 64.8, Lymph % (Auto) 28.1, [place] % (Auto) 5.1, Eos % (Auto) 0.7, Baso % (Auto) 1.2, Neut # (Auto) 5.0, Lymph # (Auto) 2.2, [place] # (Auto) 0.4, Eos # (Auto) 0.1, Baso # (Auto) 0.1, PT 10.8, INR 0.96, Sodium 139, Potassium 4.2, Chloride 104, Carbon Dioxide 25, Anion Gap 14.2, BUN 10, Creatinine 0.60, Estimated Creat Clear 141, Estimated GFR 104, Est GFR ( Amer) 126, Glucose 126 H, Calcium 9.7, Total Bilirubin 0.7, AST 154 H, ALT 161 H, Alkaline Phosphatase 81, Total Protein 8.8 H, Albumin 4.8, Globulin 4.0 H, Albumin/Globulin Ratio 1.2 01/29/24 22:40: APTT 92.0 H*, D-Dimer < 0.25 01/30/24 01:00: APTT 65.7 01/30/24 05:19: WBC 6.9, RBC 4.36, Hgb 13.0, Hct 40.0, MCV 91.7, MCH 29.7, MCHC 32.4, RDW 14.5, Plt Count 214, MPV 9.3, Neut % (Auto) 57.0, Lymph % (Auto) 35.4, [place] % (Auto) 5.7, Eos % (Auto) 1.1, Baso % (Auto) 0.7, Neut # (Auto) 3.9, Lymph # (Auto) 2.4, [place] # (Auto) 0.4, Eos # (Auto) 0.1, Baso # (Auto) 0.1, APTT 61.0, Sodium 140, Potassium 3.9, Chloride 106, Carbon Dioxide 24, Anion Gap 13.9, BUN 8, Creatinine 0.60, Estimated Creat Clear 141, Estimated GFR 104, Est GFR ( Amer) 126, Glucose 105 H, Calcium 9.3, Total Bilirubin 0.4, AST 116 H, ALT 134 H, Alkaline Phosphatase 84, Total Protein 7.6, Albumin 4.2 D, Globulin 3.4 H, Albumin/Globulin Ratio 1.2 01/30/24 09:10: APTT 63.5 I & O for Last 24 hours: Intake & Output 01/27/24 01/28/24 01/29/24 01/30/24 11:59 11:59 11:59 11:59 Intake Total 600 / 600 Output Total 0 / 0 Balance 600 / 600 Weight 179 lb 0.986 oz Constitutional Constitutional: no acute distress *Routine Respiratory Exam Respiratory: Present CTA bilaterally *Routine Cardiovascular Exam Cardiovascular: Present RRR; Absent murmur, gallop or rubs *Routine Extremities Exam Extremities: Present pulses intact; Absent edema Comments: Left fourth toe with distal tip purple/black in color. *Routine Neurological Exam Neurological: Present alert and oriented X3 Meds Home Medications and Allergies Home Medications ?Medication ?Instructions ?Recorded ?Confirmed ?Type lisinopril 10 mg tablet 10 mg PO DAILY 08/29/17 01/29/24 History pravastatin 40 mg tablet 40 mg PO HS 08/29/17 01/29/24 History cetirizine 10 mg tablet 10 mg PO DAILY 06/17/18 01/29/24 History cholecalciferol (vitamin D3) 25 1,000 unit PO DAILY 06/17/18 01/29/24 History mcg (1,000 unit) capsule omeprazole 20 mg capsule,delayed 20 mg PO DAILYP PRN Acid Reflux 07/16/20 01/30/24 History release buspirone 15 mg tablet 15 mg PO BID 07/13/21 01/29/24 History gabapentin 100 mg capsule 200 mg PO HS 07/13/21 01/29/24 History glimepiride 1 mg tablet 1 mg PO DAILY 07/13/21 01/29/24 History metformin 500 mg tablet,extended 1,000 mg PO BID 07/13/21 01/29/24 History release 24 hr dulaglutide 0.75 mg/0.5 mL 0.75 mg SQ WEEKLY 01/29/24 01/29/24 History subcutaneous pen injector (Trulicity) diltiazem HCl 120 mg capsule,24 120 mg PO DAILY 01/30/24 01/30/24 History hr,extended release tacrolimus 0.1 % topical ointment 1 applic topical BID 01/30/24 01/30/24 History New Prescriptions to Start Prescriptions: Allergies Allergy/AdvReac Type Severity Reaction Status Date / Time adhesive Allergy Verified 05/31/23 19:46 Assessment and Plan *Assessment and plan (1) Bruise of toe: Status: Acute Category: Medical Code(s): S90.129A - Contusion of unspecified lesser toe(s) without damage to nail, initial encounter (2) Non-alcoholic fatty liver disease: Status: Acute Category: Medical Code(s): K76.0 - Fatty (change of) liver, not elsewhere classified (3) Purple toe syndrome of left foot: Status: Acute Category: Medical Code(s): I75.022 - Atheroembolism of left lower extremity (4) Hypertension: Status: Acute Qualifiers: Hypertension type: unspecified Qualified Code(s): I10 - Essential (primary) hypertension Category: Medical Code(s): I10 - Essential (primary) hypertension (5) Diabetes: Status: Acute Qualifiers: Diabetes mellitus complication status: with other specified complication 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 Purple toe syndrome of the left foot/traumatic injury -Abdominal CTA and runoff without significant arterial stenosis -Echocardiogram no significant valve disease no evidence of masses or vegetations. -In light of atherosclerosis seen on abdominal CTA, recommend aspirin and continue statin therapy -No further inpatient evaluation at this time -Event monitor at discharge to rule out arrhythmias/paroxysmal atrial fibrillation -Consider MRI of the left foot to rule out bone involvement 2. Hypertension, controlled 3. Hyperlipidemia, continue statin therapy 4. Diabetes mellitus 5. Cirrhosis of the liver/nonalcoholic fatty liver disease Stable from cardiac standpoint for discharge home. Follow-up in our office in 1 to 2 weeks. Home medication recommendations: Aspirin 81 mg daily Pravastatin 40 mg daily Lisinopril 10 mg daily Diltiazem 120 mg daily
[2024-01-30 12:00] VITALS: BP 122/68; PULSE 87; RESP 16; TEMP 36.7; O2SAT 94
--- NOTE | 2024-01-30 12:00 | PC.NURSE ---
heparin drip stopped per Matthew Melendez in cardiology
--- NOTE | 2024-01-30 12:42 | EXP.DC.SUM ---
General Admission date:: 01/29/24 Discharge date: 01/30/24 HPI HPI HPI: This is a 53-year-old female with PMHX of NIDDM, HTN, HLD, presented to ED for evaluation of a left toe discoloration. Patient states that she noticed that her left fourth toe was turning black . Patient can not recall any known trauma, however, she did state later though that a grandchild walked over her bare toe. She noticed that it might have been slightly sore at some point today and happened to look down and noticed that her toe was dark in color. She denies any fever chills hemoptysis hematochezia melena hematemesis hematuria chest pain or shortness of breath. Admitted for further management. Hospital Course Hospital Course Hospital Course: 53-year-old female with PMHX of NIDDM, HTN, HLD, presented to ED for evaluation of a left toe discoloration. Patient states that she noticed that her left fourth toe was turning black . Patient can not recall any known trauma, however, she did state later though that a grandchild walked over her bare toe. Patient had CTA abd with aortic run off - which did not show any stenosis of airteries in lower extrimities. Echo cardiogram was evaluated by cardiology and was recommended event monitor, no further testing was recommended and patient was recommended for discharge, patient agreed with discharge plan and wished to go home. On the date of discharge, the patient reported feeling stable. The patient was found not to be in any acute distress, and no new abnormalities on physical examination. Further, the patient expressed appropriate understanding of, and agreement with, the discharge recommendations, medications, and plan. Time spent 37 mins Exam Data for Last 24 hours Vital signs and Labs for Last 24 Hours: Temp Pulse Resp BP Pulse Ox O2 Del Method 98.3 F 85 16 120/74 95 Room Air 01/30/24 08:00 01/30/24 08:00 01/30/24 08:00 01/30/24 08:00 01/30/24 08:00 01/30/24 10:46 Laboratory Results - last 24 hr 01/29/24 20:05: WBC 7.8, RBC 4.80, Hgb 14.1, Hct 44.6, MCV 92.9, MCH 29.5, MCHC 31.7 L, RDW 14.2, Plt Count 259, MPV 8.7, Neut % (Auto) 64.8, Lymph % (Auto) 28.1, Crockett % (Auto) 5.1, Eos % (Auto) 0.7, Baso % (Auto) 1.2, Neut # (Auto) 5.0, Lymph # (Auto) 2.2, Crockett # (Auto) 0.4, Eos # (Auto) 0.1, Baso # (Auto) 0.1, PT 10.8, INR 0.96, Sodium 139, Potassium 4.2, Chloride 104, Carbon Dioxide 25, Anion Gap 14.2, BUN 10, Creatinine 0.60, Estimated Creat Clear 141, Estimated GFR 104, Est GFR ( Amer) 126, Glucose 126 H, Calcium 9.7, Total Bilirubin 0.7, AST 154 H, ALT 161 H, Alkaline Phosphatase 81, Total Protein 8.8 H, Albumin 4.8, Globulin 4.0 H, Albumin/Globulin Ratio 1.2 01/29/24 22:40: APTT 92.0 H*, D-Dimer < 0.25 01/30/24 01:00: APTT 65.7 01/30/24 05:19: WBC 6.9, RBC 4.36, Hgb 13.0, Hct 40.0, MCV 91.7, MCH 29.7, MCHC 32.4, RDW 14.5, Plt Count 214, MPV 9.3, Neut % (Auto) 57.0, Lymph % (Auto) 35.4, Crockett % (Auto) 5.7, Eos % (Auto) 1.1, Baso % (Auto) 0.7, Neut # (Auto) 3.9, Lymph # (Auto) 2.4, Crockett # (Auto) 0.4, Eos # (Auto) 0.1, Baso # (Auto) 0.1, APTT 61.0, Sodium 140, Potassium 3.9, Chloride 106, Carbon Dioxide 24, Anion Gap 13.9, BUN 8, Creatinine 0.60, Estimated Creat Clear 141, Estimated GFR 104, Est GFR ( Amer) 126, Glucose 105 H, Calcium 9.3, Total Bilirubin 0.4, AST 116 H, ALT 134 H, Alkaline Phosphatase 84, Total Protein 7.6, Albumin 4.2 D, Globulin 3.4 H, Albumin/Globulin Ratio 1.2 01/30/24 09:10: APTT 63.5 I & O for Last 24 hours: Intake & Output 01/27/24 01/28/24 01/29/24 01/30/24 23:59 23:59 23:59 23:59 Intake Total 600 / 600 Output Total 0 / 0 Balance 600 / 600 Weight 83.461 kg 81.221 kg Constitutional Constitutional: no acute distress *Routine HEENT Exam Head: Present normocephalic Eye: Present EOMI and PERRL ENT: Present mucous membranes moist *Routine Neck Exam Neck: Present supple; Absent lymphadenopathy *Routine Respiratory Exam Respiratory: Present CTA bilaterally *Routine Cardiovascular Exam Cardiovascular: Present RRR *Routine Abdominal Exam Abdominal: Present soft and normoactive bowel sounds; Absent tenderness *Routine Extremities Exam Extremities: Absent cyanosis, clubbing or edema *Routine Skin Exam Skin: Present warm; Absent rash *Routine Neurological Exam Neurological: Present alert and oriented X3 Results Data Completed and Pending Labs on day of discharge: Labs from last 24 hours 01/30/24 01/30/24 01/30/24 09:10 05:19 01:00 WBC 6.9 RBC 4.36 Hgb 13.0 Hct 40.0 MCV 91.7 MCH 29.7 MCHC 32.4 RDW 14.5 Plt Count 214 MPV 9.3 Neut % (Auto) 57.0 Lymph % (Auto) 35.4 Crockett % (Auto) 5.7 Eos % (Auto) 1.1 Baso % (Auto) 0.7 Neut # (Auto) 3.9 Lymph # (Auto) 2.4 Crockett # (Auto) 0.4 Eos # (Auto) 0.1 Baso # (Auto) 0.1 PT INR APTT 63.5 61.0 65.7 D-Dimer Sodium 140 Potassium 3.9 Chloride 106 Carbon Dioxide 24 Anion Gap 13.9 BUN 8 Creatinine 0.60 Estimated Creat Clear 141 Estimated GFR 104 Est GFR ( Amer) 126 Glucose 105 H Calcium 9.3 Total Bilirubin 0.4 AST 116 H ALT 134 H Alkaline Phosphatase 84 Total Protein 7.6 Albumin 4.2 D Globulin 3.4 H Albumin/Globulin Ratio 1.2 01/29/24 01/29/24 22:40 20:05 WBC 7.8 RBC 4.80 Hgb 14.1 Hct 44.6 MCV 92.9 MCH 29.5 MCHC 31.7 L RDW 14.2 Plt Count 259 MPV 8.7 Neut % (Auto) 64.8 Lymph % (Auto) 28.1 Crockett % (Auto) 5.1 Eos % (Auto) 0.7 Baso % (Auto) 1.2 Neut # (Auto) 5.0 Lymph # (Auto) 2.2 Crockett # (Auto) 0.4 Eos # (Auto) 0.1 Baso # (Auto) 0.1 PT 10.8 INR 0.96 APTT 92.0 H* D-Dimer < 0.25 Sodium 139 Potassium 4.2 Chloride 104 Carbon Dioxide 25 Anion Gap 14.2 BUN 10 Creatinine 0.60 Estimated Creat Clear 141 Estimated GFR 104 Est GFR ( Amer) 126 Glucose 126 H Calcium 9.7 Total Bilirubin 0.7 AST 154 H ALT 161 H Alkaline Phosphatase 81 Total Protein 8.8 H Albumin 4.8 Globulin 4.0 H Albumin/Globulin Ratio 1.2 DS: Diagnosis Discharge Diagnosis (1) Bruise of toe: Status: Acute Code(s): S90.129A - Contusion of unspecified lesser toe(s) without damage to nail, initial encounter (2) Non-alcoholic fatty liver disease: Status: Acute Code(s): K76.0 - Fatty (change of) liver, not elsewhere classified (3) Hypertension: Status: Acute Code(s): I10 - Essential (primary) hypertension Qualifiers: Hypertension type: unspecified Qualified Code(s): I10 - Essential (primary) hypertension (4) Diabetes: Status: Acute Code(s): E11.9 - Type 2 diabetes mellitus without complications Qualifiers: Diabetes mellitus complication status: with other specified complication Diabetes mellitus ad terminal makeup operator insulin use: unspecified ad terminal makeup operator insulin use status Diabetes mellitus type: type 2 Qualified Code(s): E11.69 - Type 2 diabetes mellitus with other specified complication (5) Overweight with body mass index (BMI) 25.0-29.9: Status: Acute Code(s): E66.3 - Overweight Meds Home Medications and Allergies Home Medications ?Medication ?Instructions ?Recorded ?Confirmed ?Type lisinopril 10 mg tablet 10 mg PO DAILY 08/29/17 01/29/24 History pravastatin 40 mg tablet 40 mg PO HS 08/29/17 01/29/24 History cetirizine 10 mg tablet 10 mg PO DAILY 06/17/18 01/29/24 History cholecalciferol (vitamin D3) 25 1,000 unit PO DAILY 06/17/18 01/29/24 History mcg (1,000 unit) capsule omeprazole 20 mg capsule,delayed 20 mg PO DAILYP PRN Acid Reflux 07/16/20 01/30/24 History release buspirone 15 mg tablet 15 mg PO BID 07/13/21 01/29/24 History gabapentin 100 mg capsule 200 mg PO HS 07/13/21 01/29/24 History glimepiride 1 mg tablet 1 mg PO DAILY 07/13/21 01/29/24 History metformin 500 mg tablet,extended 1,000 mg PO BID 07/13/21 01/29/24 History release 24 hr dulaglutide 0.75 mg/0.5 mL 0.75 mg SQ WEEKLY 01/29/24 01/29/24 History subcutaneous pen injector (Trulicity) diltiazem HCl 120 mg capsule,24 120 mg PO DAILY 01/30/24 01/30/24 History hr,extended release tacrolimus 0.1 % topical ointment 1 applic topical BID 01/30/24 01/30/24 History New Prescriptions to Start Prescriptions: Allergies Allergy/AdvReac Type Severity Reaction Status Date / Time adhesive Allergy Verified 05/31/23 19:46 Discharge Plan Disposition Patient Disposition: Home, Self-Care Condition: Good Follow up Plan Follow up with: Matthew Melendez PA [Physician Rolling Mill Operator Helper] - 02/06/24 9:15 am Vickie Angulo [Primary Care Provider] - 02/03/24 3:00 pm Prescriptions/Medication Reconciliation: Continued omeprazole 20 mg capsule,delayed release(DR/EC) 20 mg PO DAILYP PRN (Reason: Acid Reflux) buspirone 15 mg tablet 15 mg PO BID metformin 500 mg tablet extended release 24 hr 1,000 mg PO BID Patient Comments: 500mg AM 1,OOOmg PM gabapentin 100 mg capsule 200 mg PO HS glimepiride 1 mg tablet 1 mg PO DAILY pravastatin 40 MG tablet 40 mg PO HS lisinopril 10 MG tablet 10 mg PO DAILY cetirizine 10 MG tablet 10 mg PO DAILY cholecalciferol (vitamin D3) 1,000 UNIT capsule 1,000 unit PO DAILY Trulicity 0.75 mg/0.5 mL pen injector 0.75 mg SQ WEEKLY diltiazem HCl 120 mg capsule,extended release 24 hr 120 mg PO DAILY tacrolimus 0.1 % ointment 1 applic TOPICAL BID Patient Comments: APPLY TOPICALLY TO THE AFFECTED AREA TWICE DAILY AT ONSET OF FLARES Problem Reconciliation Problems Reviewed?: Yes Patient Discharge Instructions ACTIVITY: Continue current activity DIET: continue same diet Patient Instructions: DI for Hematoma (Bruise) Print Language: Sami Providers Primary Care Provider: Vickie Angulo Admit Provider: Amalia Simpson Attending Provider: Amalia Simpson
--- NOTE | 2024-01-31 13:54 | CARE MANAGER ---
Contacted patient related to hospital discharge. She states she is doing well. She has no new medications and is aware of follow up appointments. NGOZI Garcia
== END 2024-01-30 13:45 | disposition home or self-care (01) ==
LOC: ER 21:39 → 2ND 22:07
PROVIDERS: Nurse Practitioner Family; Physician Assistant; Admitting Provider Internal Medicine; Emergency Provider Emergency Medicine; PCP Family Medicine; Visit Provider Internal Medicine
DX: S90.122A Contusion of left lesser toe(s) without damage to nail, initial encounter (principal); E11.9 Type 2 diabetes mellitus without complications; I10 Essential (primary) hypertension; E78.5 Hyperlipidemia, unspecified; K76.0 Fatty (change of) liver, not elsewhere classified; E66.3 Overweight; Z68.28 Body mass index [BMI] 28.0-28.9, adult; Z79.899 Other long term (current) drug therapy; R00.0 Tachycardia, unspecified; Z79.84 Long term (current) use of oral hypoglycemic drugs
CPT/HCPCS: 36415; 73620; 75635; 80053; 85025; 85378; 85610; 85730; 93005; 93270; 93306; 99285; G0378; J0131; J1644; Q9967

== ENCOUNTER 2025-02-12 10:34 | Outpatient (CLI) | payer OTHER, SELFPAY ==
--- OUTSIDE RECORDS SUMMARY | 2025-02-12 10:37 | XMS_ITS | Clinical Summary ---
Author Organization Healthcare Address [address] [place] [address] Care Team Providers Care Office Services Coordinator Name Role Phone Vickie Angulo MD Primary Care Provider [phone] Allergies Active Allergy Reactions Criticality Noted Date Comments Wound Dressing Adhesive Unknown - Patien t states they do not know rxn details Low 10/11/2019 Medications B Complex Vitamins (B COMPLEX 1 PO) B Complex 1 daily Active Calcium Carb-Cholecalci ferol (Calcium 600+D3) 600-200 MG-UNIT tablet Calcium 600 + D(3) Active dilTIAZem (Cardizem) 30 MG immediate release tablet 1 Active Blood Glucose Monitoring Suppl (FreeStyle freedom lite monitor) w/Device kit FreeStyle Deltona Lite kit Active FreeStyle lancets FreeStyle Lancets 28 gauge Active glucose blood test strip FreeStyle Lite Strips Active metFORMIN, MOD, (Glumetza) 500 MG 24 hr tablet 1 Active polyethylene glycol (MiraLax) 17 g packet Miralax 1 dose daily Active Multiple Vitamins-Minera ls (MULTI FOR HER PO) Multi For Her OTC 1 PO daily Active benzonatate (Tessalon) 100 MG capsule benzonatate 100 mg capsule Take 1-2 capsule(s) 3 TIMES A DAY by oral route prn cough Active busPIRone (Buspar) 15 MG tablet buspirone 15 mg tablet 0 Active cetirizine (ZyrTEC) 10 MG tablet cetirizine 10 mg tablet 0 Active cholecalciferol (Vitamin D-3) 25 MCG (1000 UT) capsule Vitamin D3 25 mcg (1,000 unit) capsule Take by oral route. Active gabapentin (Neurontin) 100 MG capsule gabapentin 100 mg capsule 1 Active glimepiride (Amaryl) 1 MG tablet 1 Active lisinopril 10 MG tablet lisinopril 10 mg tablet 0 Active meclizine (Antivert) 25 MG tablet meclizine 25 mg tablet TK 1 T PO TID PRN Active omeprazole (PriLOSEC) [address] capsule omeprazole 20 mg capsule,delayed release Active pioglitazone (Actos) 30 MG tablet pioglitazone 30 mg tablet 0 Active pravastatin (Pravachol) 40 MG tablet pravastatin 40 mg tablet 0 Active Social History Tobacco Use Types Packs/Day Years Used Date Smoking Tobacco: Former Smokeless Tobacco: Never Alcohol Use Standard Drinks/Week Comments No 0 (1 standard drink = 0.6 oz pur e alcohol) PHQ-2 Answer Date Recorded Patient Health Questionnaire-2 Score 0 01/30/2021 Comments Unknown Sex and Gender Information Value Date Recorded Sex Assigned at Not on file Legal Sex Female 7:41 PM EDT Gender Identity Not on file Sexual Orientation Not on file Last Filed Vital Signs Vital Sign Reading Time Taken Comments Blood Pressure 122/82 01/30/2021 12:23 PM EDT Pulse 89 01/30/2021 12:23 PM EDT Temperature 36.6 C (97.9 F) 01/30/2021 12:23 PM EDT Respiratory Rate 16 02/14/2020 8:25 AM EDT Oxygen Saturation - - Inhaled Oxygen Concentration - - Weight 92.2 kg (203 lb 3.2 oz) 01/30/2021 12:23 PM EDT Height 167.6 cm (5' 6 ) 01/30/2021 12:23 PM EDT Body Mass Index 32.8 01/30/2021 12:23 PM EDT Plan of Treatment Health Maintenance Due Date Last Done Comments [facility]-Depression Screening 1969 [facility]-Infant/Child/Adol SDOH Screenings 1969 [facility]- SDOH Screenings 10/30/1987 [facility]-Adult SDOH Screenings 10/30/1987 [facility]-Hepatitis B Vaccines (1 of 3 - 19+ 3-dose series) 1988 [facility]-Pap Smear 1990 [facility]-Cervical Cancer Screening 10/30/1999 [facility]-HPV/Cotest 10/30/1999 CT Colonography 2014 Colonoscopy 2014 FIT-DNA 2014 FIT 2014 FOBT 2014 Sigmoidoscopy 2014 [facility]-Colorectal Cancer Screening 2014 [facility]-Pneumococcal Vaccine: 50+ Years (2 of 2 - PCV) 10/30/2019 05/30/2017 [id number] Vaccine (2 - season) 2024 08/27/2020 [facility]-Influenza Vaccine (#1) 02/18/202503/26, 04/04/2020, 06/29/2019, Additional history exists [facility]-DTaP,Tdap,and Td Vaccines (2 - Td or Tdap) 05/21/2026 05/21/2016 [facility]-Hepatitis A Vaccines Aged Out 02/15/2019, 05/21 No longer eligible based on patient's age to complete this topic [facility]-Zoster Vaccines Completed 02/27/2021, HPV Vaccines Aged Out No longer eligi ble based on patient's age to complete this topic [facility]-HIB Vaccines Aged Out No longer e ligible based on patient's age to complete this topic [facility]-IPV Vaccines Aged Out No longer e ligible based on patient's age to complete this topic [facility]-Rotavirus Vaccines Aged Out No lo nger eligible based on patient's age to complete this topic [place] [address] [place] [address] Care Teams Office Services Coordinator Relationship Specialty Start Date End Date Vickie Angulo MD [address] [place] [address] [address] [place] [phone] PCP - General 10/31/20
--- OUTSIDE RECORDS SUMMARY | 2025-02-12 10:37 | XMS_ITS | Clinical Summary ---
Author Organization [facility] Address [address] [place] [id number] Phone [email or web address] Care Team Providers Care Clay Caster Name Role Phone Unavailable Primary Care Provider Unavailabl e Allergies Active Allergy Reactions Criticality Noted Date Comments Wound Dressing Adhesive Unknown Low 10/11/2019 Medications Trulicity 0.75 MG/0.5ML solution pen-injector 3 Active gabapentin (NEURONTIN) 100 MG capsule gabapentin 100 mg capsule 1 Active glimepiride (AMARYL) 1 MG tablet 1 Active lisinopril (ZESTRIL) 10 MG tablet 3 Active metFORMIN XR (GLUCOPHAGE-XR) 500 MG 24 hr tablet 3 Active omeprazole (PriLOSEC) [address] capsule omeprazole 20 mg capsule,delayed release Active pravastatin (PRAVACHOL) 40 MG tablet pravastatin 40 mg tablet Active busPIRone (BUSPAR) 15 MG tablet Take 15 mg by mouth in the morning and 15 mg in the evening and 15 mg before bedtime. Active dilTIAZem (TIAZAC) 120 MG 24 hr capsule dilTIAZem HCl ER Beads 120 MG Oral Capsule Extended Release 24 Hour QTY: 90 Days: 90 Refills: 0 Written: 12/22/22 Patient Instructions: 3 Active cetirizine (ZyrTEC) 10 MG tablet Cetirizine HCl 10 MG Oral Tablet QTY: 90 Days: 90 Refills: 0 Written: 12/22/22 Patient Instructions: 3 Active Active Problems No known active problems Resolved Problems Problem Noted Date Diagnosed Date Resolved Date Bilateral shoulder pain 12/24/2022 07/0 12/2022 Encounters Date Type Department Care Team Description 01/24/2025 Documentation 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 Gender Identity Not on file Sexual Orientation Not on file Last Filed Vital Signs Vital Sign Reading Time Taken Comments Blood Pressure 141/79 08/22/2024 1:46 PM EST Pulse 101 08/22/2024 1:46 PM EST Temperature 36.9 C (98.4 F) 08/19/2023 4:17 PM EST Respiratory Rate 18 08/09/2024 11:04 AM EST Oxygen Saturation 97% 08/09/2024 11:04 AM EST Inhaled Oxygen Concentration - - Weight 82.1 kg (181 lb) 10/18/2023 1:44 PM EDT Height 166.4 cm (5' 5.5 ) 10/18/2023 1:44 PM EDT Body Mass Index 29.66 10/18/2023 1:44 PM EDT Plan of Treatment Health Maintenance Due Date Last Done Comments CT Colonography 1969 Cervical Cancer Screening Combo 1969 Colonoscopy 1969 Colorectal Cancer Screening Combo 1969 DNA Cologuard 1969 Dental Cleaning/Exam 1969 FIT or FOBT Test 1969 HIV Screening 1969 HPV / Cotest 1969 Hepatitis C Screening 1969 Pap Testing 1969 Sigmoidoscopy 1969 Hep B Infection Screening - Triple Screen 10/30/1987 Breast Cancer Screening 10/30/1999 Hepatitis B Immunization (3 of 3 - 19+ 3-dose series) 01/10/2022 08/17/2021, 07/13/2021 Annual Preventive Exam 08/13/2023 08/13/2022 Covid-19 Immunization (3 - 2023-25 season) 2024 04/24/2021, 08/27/2020 Influenza Immunization (#1) 02/18/202503/20, 03/26/2021, 04/04/2020, Additional history exists Tetanus Diphtheria and Pertussis Immunization (2 - Td or Tdap) 05/21/2026 05/21/2016 Pneumococcal: Ped (0 to 5 Yrs) and At-Risk Member (6 to 64 Yrs) Aged Out 05/30/2017 No longer eligible based on patient's age to complete this topic Hepatitis A Immunization Aged Out 02/15/2019, 05/21 No longer eligible based on patient's age to complete this topic Zoster Immunization Completed 02/27/2021, HIB Immunization Aged Out No longer e ligible based on patient's age to complete this topic HPV Immunization Aged Out No longer e ligible based on patient's age to complete this topic Polio Immunization Aged Out No longer eligible based on patient's age to complete this topic Insurance OPT OUT NO COPAY NB
--- OUTSIDE RECORDS SUMMARY | 2025-02-12 10:37 | XMS_ITS | Encounter Summary ---
Author Organization [facility] Address [address] [place] [id number] Phone [email or web address] Care Team Providers Care Custom Seamstress Name Role Phone Unavailable Primary Care Provider Unavailabl e Encounter Details Date Type Department Care Team (Late st Contact Info) Description 01/24/[address] [place] [address] Brianna Carrillo MA [address] [place] [address] Social History Tobacco Use Types Packs/Day Years Used Date Smoking Tobacco: Former Cigarettes Q uit: 2002 Smokeless Tobacco: Never Depression Answer Date Recorded PHQ Total Score 0 01/21/2023 Stress Answer Date Recorded Stress in your Life Not on file 04/23/2024 Dealing with Stress 3 04/23/2024 Comments No Sex and Gender Information Value Date Recorded Sex Assigned at Not on file 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
[2025-02-12 17:35] LABS: Hematocrit 37.6 % (37.0-47.0); Hemoglobin 12.5 g/dL (12.2-16.2); Immature Granulocytes % 0.3 %; Mean Corpuscular HGB Conc 33.2 g/dL (31.8-35.4); Mean Corpuscular Hemoglobin 28.9 pg (27.0-31.2); Mean Corpuscular Volume 86.8 fl (81-99); Nucleated Red Blood Cells % 0 %; Platelet Count 212 K/mm3 (142-424); Red Blood Count 4.33 M/mm3 (4.20-5.40); Red Cell Distribution Width-SD 42.0 fL; White Blood Count 6.3 K/mm3 (4.8-10.8)
[2025-02-12 17:42] LABS: INR 1.08 (0.9-1.1); Prothrombin Time 11.9 seconds (10.1-12.5)
[2025-02-12 18:18] LABS: Albumin Level 4.8 g/dl (3.5-5.0); Chloride 101 mmol/L (98-107); Potassium 4.8 mmoL/L (3.5-5.1); Sodium 138 mmol/L (136-145)
[2025-02-12 18:21] LABS: Alanine Aminotransferase 130 U/L (12-78); Albumin/Globulin Ratio 1.5 (1.1-1.8); Alkaline Phosphatase 76 U/L (38-126); Anion Gap 15.8 mEq/L (5-15); Aspartate Amino Transferase 150 U/L (14-36); Bilirubin,Total 0.4 mg/dl (0.2-1.3); Blood Urea Nitrogen 11 mg/dl (7-17); Carbon Dioxide 26 mmol/L (22.0-30.0); Creatinine,Serum 0.60 mg/dl (0.52-1.04); Estimated Glomerular Filt Rate 104 ml/min (>60); GFR (African American) 126 ML/MIN (>60); Globulin 3.1 g/dL (1.3-3.2); Total Protein,Serum 7.9 g/dl (6.3-8.2)
[2025-02-12 18:22] LABS: Calcium 9.5 mg/dl (8.4-10.2); Glucose 88 mg/dl (74-100)
[2025-02-14 09:13] LABS: Hepatitis C Antibody Non Reactive (Non Reactive)
== END 2025-02-12 23:59 | disposition home or self-care (01) ==
LOC: LAB 10:35
PROVIDERS: PCP Family Medicine; Visit Provider Internal Medicine Gastroenterology
DX: K74.69 Other cirrhosis of liver (principal); B19.20 Unspecified viral hepatitis C without hepatic coma; K75.81 Nonalcoholic steatohepatitis (NASH)
CPT/HCPCS: 36415; 80053; 81596; 82103; 82104; 82105; 82172; 82247; 82465; 82947; 82977; 83521; 84450; 84460; 84478; 85025; 85610; 86803